=== PATIENT | male | born 1950 | race Hispanic/Latino ===

== ENCOUNTER 2017-10-20 10:44 | Inpatient (IN) | payer MEDICARE ==
[2017-10-20] VITALS (23 sets, daily range): BP systolic 83–106; BP diastolic 49–75
[~2017-10-20] VITALS: Ht 167.6 cm; Wt 55.8 kg
[2017-10-20] MEDS ORDERED: METHYLPREDNISOLONE SOD SUCC 125 MG/2ML VIAL ONE (10:49)
[2017-10-20] MEDS ORDERED: METHYLPREDNISOLONE SOD SUCC 125 MG/2ML VIAL IV ONE (10:50)
[2017-10-20] MEDS ORDERED: IPRATROPIUM BROMIDE 0.02% 2.5 ML NEB ONE (10:55)
[2017-10-20] MEDS ORDERED: ALBUTEROL SULF 0.083% NEB SOLN 3 ML NEB ONE (10:55)
[2017-10-20] MEDS ORDERED: CEFEPIME HCL 1 GM VIAL IV STA (10:55)
[2017-10-20 11:17] LABS: BASOPHILS # (AUTO) 0.1 (0.0-0.1); BASOPHILS % 0.5 % (0.0-1.0); EOSINOPHILS # (AUTO) 0.7 (0.0-0.4); EOSINOPHILS % 4.6 % (0.0-6.0); HEMATOCRIT 38.7 % (38.2-49.6); LYMPHOCYTES # (AUTO) 5.8 (1.0-3.2); LYMPHOCYTES % 36.9 % (18.0-39.1); MEAN CORPUSCULAR HEMOGLOBIN 29.6 pg (28-32); MEAN CORPUSCULAR VOLUME 95.3 fL (81-99); MONOCYTES # (AUTO) 1.1 (0.2-0.8); MONOCYTES % 7.3 % (4.4-11.3); NEUTROPHILS # (AUTO) 7.9 (2.1-6.9); NEUTROPHILS % 50.3 % (38.7-80.0); PLATELET COUNT 365 x10e3/uL (140-360); RED BLOOD COUNT 4.06 x10e6/uL (4.3-5.7); RED CELL DISTRIBUTION WIDTH 17.2 % (11.7-14.4)
--- NOTE | 2017-10-20 11:28 | Diagnostic Imaging Report ---
Examination: Single AP view of the chest. COMPARISON: None. INDICATION: Respiratory distress IMPRESSION: 1. Lines and Tubes: Single lead AICD in the left upper chest. Tracheostomy tube in place. 2. Hypoinflated lungs. Diffuse bilateral interstitial opacities extending from the angelito consistent with pulmonary edema. Partial obscuration of the left hemidiaphragm likely reflects pleural effusion and associated atelectasis. 3. Enlarged cardiac silhouette. Central pulmonary venous congestion 4. No acute bony abnormalities. Signed by: Dr. Domenico Celestin M.D. on 10/20/2017 11:24 AM
[2017-10-20] MEDS ORDERED: SODIUM CHLORIDE 0.9% 1000ML 1,000 ML IV SCH (11:30)
[2017-10-20 11:31] LABS: INR 2.18; PROTHROMBIN TIME 22.8 seconds (11.9-14.5)
[2017-10-20 11:32] LABS: PARTIAL THROMBOPLASTIN TIME 42.2 seconds (23.8-35.5)
[2017-10-20 11:41] LABS: EOSINOPHILS % (MANUAL) 8 % (0-7); LYMPHOCYTES % (MANUAL) 38 % (19-48); MONOCYTES % (MANUAL) 7 % (3.4-9.0); NEUTROPHILS % (MANUAL) 47 % (40-74)
[2017-10-20 11:42] LABS: ANISOCYTOSIS SLIGHT; PLATELET ESTIMATE ADEQUATE; PLATELET MORPHOLOGY COMMENT FEW LARGE; RBC MORPHOLOGY COMMENT NORMAL; STOMATOCYTES SLIGHT
[2017-10-20 11:43] LABS: B-TYPE NATRIURETIC PEPTIDE2 832.6 pg/mL (0-100)
[2017-10-20] MEDS ORDERED: FUROSEMIDE INJ 10 MG/ML 4 ML VIAL IV ONE (11:45)
[2017-10-20 11:47] LABS: ALANINE AMINOTRANSFERASE 30 IU/L (0-55); ALBUMIN 3.4 g/dL (3.5-5.0); ALBUMIN/GLOBULIN RATIO 0.6 (0.8-2.0); ALKALINE PHOSPHATASE 177 IU/L (40-150); AMYLASE 64 U/L (25-125); ANION GAP 15.2 mmol/L (8-16); BLOOD UREA NITROGEN 12 mg/dL (7-26); BUN/CREATININE RATIO 21 (6-25); CALCIUM 9.5 mg/dL (8.4-10.2); CARBON DIOXIDE 32 mmol/L (22-29); CHLORIDE 91 mmol/L (98-107); CREATINE KINASE 26 IU/L (30-200); CREATININE, SERUM 0.57 mg/dL (0.72-1.25); EST GLOMERULAR FILTRATION RATE > 60 ML/MIN (60-); GLUCOSE 149 mg/dL (74-118); LIPASE 37 U/L (8-78); POTASSIUM 5.2 mmol/L (3.5-5.1); SODIUM 133 mmol/L (136-145)
[2017-10-20 12:01] LABS: ABG PH 7.39 (7.31-7.41)
[2017-10-20 12:02] LABS: ABG HCO3 32 mmol/L (23-28); ABG PCO2 54 mmHg (41-51); ABG PO2 515 mmHg (80-105)
[2017-10-20] MEDS: INSULIN LISPRO 100 UNIT/1 ML 3ML VIAL SQ SCH ×3 (12:30→23:16)
[2017-10-20] MEDS ORDERED: VANCOMYCIN HCL 1GM/NS 250 ML BAG IV SCH (12:30)
[2017-10-20] MEDS ORDERED: SOD POLYSTYRENE SULFONATE SUSP 15 GM/60 ML BTL PO ONE (12:30)
[2017-10-20] MEDS: LEVOFLOXACIN 750MG/D5W 150ML 150 ML IV SCH ×2 (12:50→14:07)
[2017-10-20] MEDS: AZITHROMYCIN 500MG/SOD CHL 0.9% 250ML BAG IV SCH (14:00)
[2017-10-20] MEDS: VANCOMYCIN 1GM/NS 250 ML 250 ML IV SCH (14:07)
[2017-10-20] MEDS: ENOXAPARIN SOD INJ 40 MG/0.4 ML SYR SC SCH (14:14)
[2017-10-20] MEDS ORDERED: LEVOTHYROXINE50 MCG PO (14:37)
[2017-10-20] MEDS ORDERED: LISINOPRIL2.5 MG PO (14:38)
[2017-10-20] MEDS ORDERED: MIDODRINE HCL2.5 MG PO (14:39)
[2017-10-20] MEDS ORDERED: NEOMYCIN-POLYMY10 ML (14:40)
[2017-10-20] MEDS ORDERED: ONDANSETRON2 MG/1 ML IV (14:42)
[2017-10-20] MEDS ORDERED: PNEUMOVAX25 MCG/0.5 IM (14:43)
[2017-10-20] MEDS ORDERED: SERTRALINE HCL50 MG PO (14:44)
[2017-10-20] MEDS ORDERED: SPIRONOLACTONE25 MG PEG (14:45)
[2017-10-20] MEDS ORDERED: VENELEX OINTMEN60 GM (14:46)
[2017-10-20] MEDS ORDERED: COUMADIN3 MG PEG (14:48)
[2017-10-20] MEDS ORDERED: ZINC OXIDE56.7 GM TOP (14:49)
[2017-10-20] MEDS ORDERED: ACETAMINOPHEN650 MG PEG (14:52)
[2017-10-20] MEDS ORDERED: ALPRAZOLAM0.25 MG PEG (14:53)
[2017-10-20] MEDS ORDERED: AMIODARONE HCL200 MG PEG (14:54)
[2017-10-20] MEDS ORDERED: BUDESONIDE0.5 MG/2 M NEB (14:56)
[2017-10-20] MEDS ORDERED: CARVEDILOL3.125 MG PEG (14:58)
[2017-10-20] MEDS ORDERED: CHOLESTYRAMINE P4 GM PEG (15:00)
[2017-10-20] MEDS ORDERED: DEXTROSE 50%-WA50 ML IV (15:01)
[2017-10-20] MEDS ORDERED: FAMOTIDINE20 MG PEG (15:02)
[2017-10-20] MEDS ORDERED: GABAPENTIN100 MG PEG (15:05)
[2017-10-20] MEDS ORDERED: GLUCAGEN1 M1 IM (15:05)
[2017-10-20] MEDS ORDERED: HUMALOG100 UNIT/1 SC (15:10)
[2017-10-20] MEDS ORDERED: COMBIVENT RESPIM4 GM IH (15:14)
[2017-10-20] MEDS ORDERED: LEVEMIR100 UNIT/1 SC (15:14)
[2017-10-20] MEDS ORDERED: GLUCAGON FOR INJ 1 MG VIAL IM PRN (15:45)
[2017-10-20] MEDS ORDERED: ACETAMINOPHEN 650 MG SUPP PR PRN (15:45)
[2017-10-20] MEDS ORDERED: DEXTROSE 50% SYRINGE 50 ML IV PRN ×2 (15:45→18:00)
[2017-10-20] MEDS: BUDESONIDE 0.5MG/2 ML NEB NEB SCH ×2 (16:20→18:55)
[2017-10-20] MEDS ORDERED: ONDANSETRON HCL INJ 2 MG/ML VIAL ONE (16:49)
[2017-10-20] MEDS ORDERED: NOREPINEPHRINE 8 MG/D5W 250 ML 250 ML IV PRN (17:00)
[2017-10-20] MEDS ORDERED: WARFARIN SOD 3 MG TAB PEG SCH (17:00)
[2017-10-20] MEDS: WARFARIN SOD 2.5 MG TAB PEG SCH (17:00)
[2017-10-20] MEDS: ONDANSETRON HCL INJ 2 MG/ML VIAL IV PRN (17:14)
[2017-10-20] MEDS: NEOMYCIN/POLYMYX/HYDROC (OTIC) 10 ML BTL OT SCH (17:14)
--- NOTE | 2017-10-20 17:17 | History and Physical ---
This is a 67-year-old male who unfortunately has a history of severe cardiomyopathy with an ejection fraction of 10%, history of chronic ventilator situation because of chronic respiratory failure, history of several weaning trials from the ventilator machine. He has been on the ventilator for at least 3 months. He has been in and out of the hospital. The last admission was in [place] with pneumonia and acute congestive heart failure. He was trying to be weaned off the ventilator several times. He failed all the times. The family wanted hospice but he declined, based on the patient's wishes. Patient was at [facility] and was sent here because of acute respiratory failure again. PHYSICAL EXAMINATION: VITAL SIGNS: Blood pressure 100/72, temperature 97.6, heart rate 103 per minute, respiratory rate 24 per minute. Oxygen pressure 100%. HEART: Shows regular rhythm. No murmurs. No extra sounds. LUNGS: Decreased breath sounds bilaterally. ABDOMEN: Soft. EXTREMITIES: Show no evidence of cyanosis, edema or trauma. On the chest x-ray showed pulmonary edema. On the BMP sodium 133, potassium 5.2, chloride 91. CO2 32. BUN 12, creatinine 0.57. Glucose 149. On the CBC white blood count 15,300, hemoglobin 12.2, hematocrit 38.7, platelet count 365 000. PT 22.8. INR 2.18. PTT 42.2. AST 40. ALT 30. Total bilirubin 0.4. Alkaline phosphatase 177. FINAL IMPRESSION: 1. Wzdyq-nl-hjdcirj respiratory failure secondary to congestive heart failure. 2. Rfwue-vi-kssuebo systolic congestive heart failure. 3. Hyperkalemia. 4. Aspiration pneumonia. 5. Paroxysmal atrial fibrillation. PLAN OF TREATMENT: Going to continue ventilator support. Going to discontinue IV fluids. Continue Levaquin 500 mg IV daily, vancomycin 1 gram IV once a day. Going to start him on Lasix 40 mg IV daily. Are going to discontinue lisinopril. Coumadin going to placed on hold. The patient is going to need either a PICC line or a central line due to hypotension, but most likely need to start him on Levophed or dopamine. Going to consult Dr. Molina, mine motor operator who knows the patient very well. for pulmonary because he knows the patient very well also. The patient has a very poor prognosis. We discussed the case with the family several times. We offered hospice. The patient and the family refused that. They understand that the prognosis is very poor with very low ejection fraction around 10%. Continue the rest of the medications except the blood pressure medications. Job#: [id number]
[2017-10-20] MEDS: ALPRAZOLAM 0.25 MG TAB PEG SCH ×2 (17:22→23:14)
[2017-10-20] MEDS: CARVEDILOL 3.125 MG TAB PEG SCH (17:22)
[2017-10-20] MEDS: SPIRONOLACTONE 25 MG TAB PEG SCH (17:22)
[2017-10-20] MEDS: IPRATROPIUM/ALBUTEROL SULFATE 4 GM INH INH SCH (19:00)
--- NOTE | 2017-10-20 20:49 | Consultation ---
DATE OF CONSULTATION: October 20, 2017 PULMONARY CRITICAL CARE CONSULTATION Patient is well known to me from [facility] and [facility]. HPI: Mr. Cortez is a 67-year-old unfortunate male who has ejection fraction of 10%, severe cardiomyopathy. He had multiple attempts of ventilator weaning in the last 6 to 7 months which has been failed and he has been ventilator dependent. He was transferred. He stayed almost a month at [facility] and was transferred to [facility] 2 days ago where he became tachypneic and was losing volume from around the tracheostomy and I was called, so I requested a transfer to the emergency room. Patient was seen in the emergency room and admitted here. The patient's family has declined any hospice or comfort care. Overall, prognosis is poor and they are aware of it. REVIEW OF SYSTEMS: Unable to elicit detailed review of systems. Patient is on a ventilator right now. PAST MEDICAL HISTORY: Chronic systolic heart failure, atrial fibrillation, hypertension, ventilator dependence, chronic respiratory failure. FAMILY AND SOCIAL HISTORY: He lives at the [facility]. He has no history of smoking. is involved in care. PHYSICAL EXAMINATION: VITAL SIGNS: Temperature 97.6, pulse of 81, blood pressure 106/71, respiratory rate of 18, O2 sat 100% and he is on 50% FiO2 and tidal volume of 450. HEENT: Head atraumatic, normocephalic. NECK: Patient has tracheostomy. CHEST: Clear to auscultation bilaterally. No wheezing. HEART: S1, S2 audible. ABDOMEN: Soft. EXTREMITIES: No pedal edema. NEUROLOGICAL: He is awake and alert and following commands. LABORATORY DATA: White count of 15,000, hemoglobin 12.0, platelets 365,000. Chemistry: Sodium 133, potassium 5.2, chloride 91, BUN 12, creatinine 0.57. Blood gas: PH of 7.49, pCO2 54, pO2 of 515. X-RAYS: Chest x-ray is showing bilateral alveolar infiltrate. ASSESSMENT AND PLAN: Mr. Cortez is a 67-year-old male who presented to the emergency room from [facility] with shortness of breath and tachypnea. Patient is ventilator dependent, has severe cardiomyopathy with ejection fraction of 10%. CURRENT PROBLEMS: 1. Ugbid-tj-fxlczzm systolic heart failure. 2. Possible pneumonia. Recently was treated for pseudomonas pneumonia. 3. Rwkau-ub-vrivfeu respiratory failure. Ventilator dependence. 4. Atrial fibrillation. 5. Debility and weakness. 6. Bedbound status. 7. Tracheostomy. 8. Gastrostomy tube status. PLAN: 1. Continue the patient on IV antibiotics as ordered. 2. Cardiology consultation has been called for heart failure. Overall, patient has extremely poor prognosis. This has been discussed in detail with patient's when the patient was at [facility] [place] and they want everything done for him. Critical care time spent is 50 minutes. Job#: [id number]
[2017-10-20] MEDS: MIDODRINE HCL 5 MG TABLET PO SCH (20:54)
[2017-10-20] MEDS: GABAPENTIN 100 MG CAP PEG SCH (20:54)
--- NOTE | 2017-10-20 20:54 | Consultation ---
DATE OF CONSULTATION: October 20, 2017 CARDIOLOGY CONSULTATION CLINICAL HISTORY: This is a 67-year-old man with multiple medical problems known to me from previous evaluation, recently at [facility] referred by Dr. Milton Roper for cardiovascular evaluation in setting of progressive shortness of breath. This patient is known to have alcoholic cardiomyopathy with ejection fraction the range of 10%. He has a chronic tracheostomy. He apparently had this for the past 6 months plus. He also has patient has severe weakness in all 4 extremities. There is unclear history of cervical neck problems. He has had a cardiac catheterization which failed to show significant coronary artery disease. There are also problems with atrial fibrillation and supraventricular tachycardia, some of which is exacerbated by albuterol. He has chronic hypotension maintained on midodrine. He has hypothyroidism. He is status post AICD due to cardiomyopathy. In the past he has had valvular surgery at least 2 different locations. He has chronic urinary tract infections. He was recently transferred from [place] ICU to [facility] and while there just for a day or so he became severely dyspneic and was readmitted to our ICU. Cardiac consultation requested. PAST MEDICAL HISTORY: Remarkable for above-mentioned condition. FAMILY HISTORY: Please refer to previous records. PERSONAL/SOCIAL HISTORY: Was a heavy drinker. PHYSICAL EXAMINATION: HEENT: He has tracheostomy. CARDIAC: Jugular veins are not distended. S1 and S2 are regular and rapid. There is grade 1/6 systolic murmur. LUNGS: Scattered crackles. ABDOMEN: Soft. Bowel sounds are present. EXTREMITIES: Show no cyanosis, clubbing or edema. IMPRESSION: 1. Congestive heart failure with severe alcoholic cardiomyopathy. Ejection fraction 10%. 2. Status post AICD. 3. History of atrial fibrillation and supraventricular tachycardia exacerbated by bronchodilators. 4. Hypothyroidism. 5. Quadriparesis. 6. History of valvular surgery. 7. Chronic tracheostomy. RECOMMENDATION: Treatment for congestive heart failure. Diuretics. Avoid bronchodilators if possible. Job#: [id number] GH cc:MILTON ROPER MD
[2017-10-20] MEDS ORDERED: MIDODRINE 2.5 MG TAB PO SCH (21:00)
--- NOTE | 2017-10-20 22:51 | Diagnostic Imaging Report ---
EXAM: CHEST XRAY LINE PLACEMENT, AP 1 view INDICATION: PICC placement COMPARISON: AP view of the chest October 20, 2017 FINDINGS: LINES/TUBES: Distal aspect of a right approach PICC terminates in expected location of the atriocaval junction. Stable position of left approach single lead cardiac device. Tracheostomy and lower median sternotomy wire stable. LUNGS: Stable bilateral interstitial and alveolar opacities given rotation. PLEURA: Suspected left pleural effusion. HEART AND MEDIASTINUM: Stable cardiomegaly and vascular congestion. BONES AND SOFT TISSUES: No acute findings. IMPRESSION: Interval placement of right approach PICC with tip at the expected location of the atriocaval junction. Signed by: Dr. Shaye Retana M.D. on 10/20/2017 10:47 PM
[2017-10-21] VITALS (55 sets, daily range): BP systolic 67–119; BP diastolic 47–79
[2017-10-21 04:45] LABS: BASOPHILS % 0.2 % (0.0-1.0); EOSINOPHILS % 0.1 % (0.0-6.0); HEMOGLOBIN 9.2 g/dL (14.0-18.0); LYMPHOCYTES # (AUTO) 0.9 (1.0-3.2); LYMPHOCYTES % 8.5 % (18.0-39.1); MEAN CORPUSCULAR HGB CONC 31.7 g/dL (31-35); MEAN CORPUSCULAR VOLUME 94.5 fL (81-99); NEUTROPHILS # (AUTO) 8.7 (2.1-6.9); NEUTROPHILS % 81.8 % (38.7-80.0); PLATELET COUNT 211 x10e3/uL (140-360); RED BLOOD COUNT 3.07 x10e6/uL (4.3-5.7); RED CELL DISTRIBUTION WIDTH 17.2 % (11.7-14.4)
[2017-10-21 04:59] LABS: INR 2.17; PROTHROMBIN TIME 22.7 seconds (11.9-14.5)
[2017-10-21 05:05] LABS: BLOOD UREA NITROGEN 18 mg/dL (7-26); BUN/CREATININE RATIO 35 (6-25); CALCIUM 8.7 mg/dL (8.4-10.2); CARBON DIOXIDE 30 mmol/L (22-29); CHLORIDE 99 mmol/L (98-107); CREATININE, SERUM 0.51 mg/dL (0.72-1.25); EST GLOMERULAR FILTRATION RATE > 60 ML/MIN (60-); GLUCOSE 113 mg/dL (74-118); SODIUM 138 mmol/L (136-145)
[2017-10-21] MEDS: INSULIN LISPRO 100 UNIT/1 ML 3ML VIAL SQ SCH ×3 (05:08→18:00)
[2017-10-21] MEDS: ALPRAZOLAM 0.25 MG TAB PEG SCH ×3 (05:19→18:23)
[2017-10-21] MEDS: IPRATROPIUM/ALBUTEROL SULFATE 4 GM INH INH SCH ×3 (06:52→19:00)
[2017-10-21] MEDS: FUROSEMIDE INJ 10 MG/ML 4 ML VIAL IV SCH (07:59)
[2017-10-21] MEDS: LISINOPRIL 2.5 MG TAB PO SCH (09:00)
[2017-10-21] MEDS ORDERED: LEVOFLOXACIN 750MG/DEXTROSE PREMIX BAG 150ML IV SCH (09:00)
[2017-10-21] MEDS ORDERED: LEVOTHYROXINE SODIUM 50 MCG TAB PO SCH (09:00)
[2017-10-21] MEDS: SPIRONOLACTONE 25 MG TAB PEG SCH ×2 (09:53→18:21)
[2017-10-21] MEDS: NEOMYCIN/POLYMYX/HYDROC (OTIC) 10 ML BTL OT SCH ×2 (09:53→18:21)
[2017-10-21] MEDS: ZINC OXIDE 30 GM TUBE TOP SCH (09:54)
[2017-10-21] MEDS: FAMOTIDINE 20 MG TAB PEG SCH (09:54)
[2017-10-21] MEDS: GABAPENTIN 100 MG CAP PEG SCH ×3 (09:54→20:55)
[2017-10-21] MEDS: CARVEDILOL 3.125 MG TAB PEG SCH (09:54)
[2017-10-21] MEDS: MIDODRINE HCL 5 MG TABLET PO SCH ×3 (09:54→20:55)
[2017-10-21] MEDS: SERTRALINE HCL 50 MG TAB PO SCH (09:54)
[2017-10-21] MEDS: AZITHROMYCIN 500MG/SOD CHL 0.9% 250ML BAG IV SCH (12:45)
[2017-10-21] MEDS: VANCOMYCIN 1GM/NS 250 ML 250 ML IV SCH (13:43)
[2017-10-21] MEDS: QUETIAPINE FUMARATE 25 MG TAB PO SCH ×2 (13:59→20:55)
[2017-10-21] MEDS: BUDESONIDE 0.5MG/2 ML NEB NEB SCH (15:15)
--- NOTE | 2017-10-21 18:17 | Progress Note ---
DATE: INTERNAL MEDICINE PROGRESS NOTE SUBJECTIVE: Patient is still on a ventilator machine. PHYSICAL EXAM: HEART: Shows regular rhythm. Normal S1 and S2 sounds. LUNGS: Clear bilaterally. ABDOMEN: Soft. EXTREMITIES: Show no evidence of cyanosis, edema or trauma. VITAL SIGNS: Blood pressure 75/57, temperature 96.8, heart rate 78 per minute, respiratory rate 20 per minute, oxygen saturation 100%. BLOOD WORK: We have a CBC with a white blood count 10.63, hemoglobin 9.2, hematocrit 29.0, platelet count is 211,000. On the BMP: Sodium 138, potassium 4.0, chloride 99, CO2 30, BUN 18, creatinine 0.5, glucose is 113, calcium 8.7. B-natriuretic peptide is 832.6. Lipase at 37. The last blood sugar is 141. We also had a chest x-ray done, which showed interval placement of the PICC line. The lungs showed bilateral interstitial alveolar opacities, left pleural effusion, stable cardiomegaly, vascular congestion, bone and soft tissue, no acute findings. FINAL IMPRESSION: 1. Acute on chronic respiratory failure. 2. Aspiration pneumonia. 3. Acute on chronic congestive heart failure. 4. Anemia of chronic disease. 5. Hypotension. 6. Severe end-stage cardiomyopathy. 7. Paroxysmal atrial fibrillation. PLAN OF TREATMENT: Continue budesonide twice a day. Albuterol and Atrovent q.6 h. Levaquin once a day. Continue vancomycin q.24 h. Tylenol 650 mg q.6 h. as needed. He is on furosemide, also, 40 mg IV daily. Levaquin is 750 mg IV once daily. Levophed drip to keep the systolic blood pressure more than 90. Vancomycin is 1 gram IV once a day. Alprazolam 0.25 mg q.6 h. as needed for anxiety with the Pulmicort 1 inhalation twice a day. Coreg 6.25 mg twice a day. Continue Pepcid 20 mg daily. Continue furosemide 40 mg IV daily. Continue with new gabapentin 100 mg 3 times a day. Continue monitoring blood sugar q.6 h. Continue albuterol and Atrovent q.6 h. Continue with lisinopril 2.5 mg daily. Lovenox 40 mg subcutaneously daily. Midodrine 5 mg 3 times a day. Neomycin otic solution twice a day. Zofran 4 mg IV q.6 h. as needed for nausea and vomiting. Seroquel 12.5 mg q.12 h. Zoloft 50 mg daily. Aldactone 25 mg twice a day. Coumadin 2.5 mg daily. Zithromax 500 mg IV once a day. I am going to place the Coreg on hold because of the blood pressure. Patient remains in critical condition. I discussed the case with the yesterday. The still wants everything to be done according to his wishes. Patient has a very low ejection fraction of 10%. Prognosis is extremely poor on this patient. Job#: [id number] EV
[2017-10-21] MEDS: WARFARIN SOD 2.5 MG TAB PEG SCH (18:23)
--- NOTE | 2017-10-21 19:04 | Consultation ---
DATE OF CONSULTATION: REASON FOR CONSULTATION: Sepsis. HISTORY OF PRESENT ILLNESS: This is a 67-year-old male, who has history of severe cardiomyopathy, ejection fraction 10%. History of chronic vent dependent. Patient has been on a ventilator for last 3 months. He has been in the hospital on and off for pneumonia, congestive heart failure. Family wanted hospice, but he declined. Patient was at [facility]. He was transferred here for shortness of breath. Patient was admitted, is currently in intensive care unit. Infectious disease was consulted. The patient is currently noncommunicative. History taken mainly from the chart. LABORATORY DATA: Blood cultures negative. White count on admission was 15, today is 10, hemoglobin 9.2. Sodium 138, potassium 4.0, creatinine 0.51. He is currently on Neurontin, vancomycin, azithromycin, Zoloft, Pepcid, and levofloxacin. His chest x-ray shows diffuse bilateral opacities. PHYSICAL EXAMINATION GENERAL: Patient noncommunicative. VITALS: Temperature 97.8, blood pressure is 74/47. HEENT: Normocephalic. CHEST: Few rhonchi bilateral. COR: S1, S2. ABDOMEN: Soft. Bowel sounds present. EXTREMITIES: Bilateral edema. IMPRESSIONS 1. Sepsis present on admission, respiratory failure in a patient who have severe congestive heart failure, pneumonia community acquired, healthcare-associated. He is currently on vancomycin and Levaquin. Can discontinue azithromycin. Prognosis is poor. 2. Congestive heart failure. 3. Status post automatic implantable cardioverter defibrillator. 4. History of atrial fibrillation. 5. Hypothyroidism. 6. Quadriparesis. 7. History of chronic tracheostomy. 8. Will follow with you. 9. Will follow and vancomycin trough. Job#: [id number] CQ
[2017-10-22] VITALS (24 sets, daily range): BP systolic 87–134; BP diastolic 58–99
[2017-10-22] MEDS: IPRATROPIUM/ALBUTEROL SULFATE 4 GM INH INH SCH ×4 (01:00→19:00)
[2017-10-22] MEDS: ALPRAZOLAM 0.25 MG TAB PEG SCH ×4 (02:28→18:00)
[2017-10-22] MEDS: BUDESONIDE 0.5MG/2 ML NEB NEB SCH ×2 (02:40→07:35)
[2017-10-22 04:44] LABS: BASOPHILS # (AUTO) 0.1 (0.0-0.1); BASOPHILS % 0.5 % (0.0-1.0); EOSINOPHILS # (AUTO) 0.9 (0.0-0.4); EOSINOPHILS % 8.9 % (0.0-6.0); HEMATOCRIT 32.9 % (38.2-49.6); HEMOGLOBIN 10.4 g/dL (14.0-18.0); LYMPHOCYTES # (AUTO) 1.4 (1.0-3.2); LYMPHOCYTES % 13.4 % (18.0-39.1); MEAN CORPUSCULAR HEMOGLOBIN 30.1 pg (28-32); MEAN CORPUSCULAR HGB CONC 31.6 g/dL (31-35); MEAN CORPUSCULAR VOLUME 95.1 fL (81-99); MONOCYTES # (AUTO) 0.6 (0.2-0.8); MONOCYTES % 5.6 % (4.4-11.3); NEUTROPHILS # (AUTO) 7.2 (2.1-6.9); NEUTROPHILS % 71.3 % (38.7-80.0); PLATELET COUNT 227 x10e3/uL (140-360); RED BLOOD COUNT 3.46 x10e6/uL (4.3-5.7); RED CELL DISTRIBUTION WIDTH 17.2 % (11.7-14.4)
[2017-10-22 04:57] LABS: INR 1.7; PROTHROMBIN TIME 18.8 seconds (11.9-14.5)
[2017-10-22 05:05] LABS: ANION GAP 13.8 mmol/L (8-16); BLOOD UREA NITROGEN 21 mg/dL (7-26); BUN/CREATININE RATIO 36 (6-25); CALCIUM 8.9 mg/dL (8.4-10.2); CARBON DIOXIDE 31 mmol/L (22-29); CHLORIDE 97 mmol/L (98-107); CREATININE, SERUM 0.59 mg/dL (0.72-1.25); EST GLOMERULAR FILTRATION RATE > 60 ML/MIN (60-); GLUCOSE 146 mg/dL (74-118); POTASSIUM 3.8 mmol/L (3.5-5.1); SODIUM 138 mmol/L (136-145)
[2017-10-22] MEDS: INSULIN LISPRO 100 UNIT/1 ML 3ML VIAL SQ SCH ×4 (06:00→18:00)
--- NOTE | 2017-10-22 07:06 | Diagnostic Imaging Report ---
EXAM: CHEST SINGLE (PORTABLE), AP 1 view INDICATION: Question of aspiration COMPARISON: AP view of the chest October 20, 2017 FINDINGS: LINES/TUBES: Stable right approach PICC, tracheostomy and left approach cardiac device. LUNGS: Stable interstitial alveolar opacities, greatest on the left. PLEURA: No effusions or pneumothorax. HEART AND MEDIASTINUM: Stable appearance BONES AND SOFT TISSUES: No acute findings. IMPRESSION: No interval change. Signed by: Dr. Shaye Retana M.D. on 10/22/2017 7:03 AM
[2017-10-22] MEDS: FUROSEMIDE INJ 10 MG/ML 4 ML VIAL IV SCH (09:00)
[2017-10-22] MEDS: ENOXAPARIN SOD INJ 40 MG/0.4 ML SYR SC SCH (09:00)
[2017-10-22] MEDS: ZINC OXIDE 30 GM TUBE TOP SCH (09:00)
[2017-10-22] MEDS: LEVOFLOXACIN 750MG/D5W 150ML 150 ML IV SCH (09:00)
[2017-10-22] MEDS: QUETIAPINE FUMARATE 25 MG TAB PO SCH ×2 (09:00→21:13)
[2017-10-22] MEDS: LISINOPRIL 2.5 MG TAB PO SCH (09:00)
[2017-10-22] MEDS: NEOMYCIN/POLYMYX/HYDROC (OTIC) 10 ML BTL OT SCH ×2 (09:00→17:00)
[2017-10-22] MEDS: SPIRONOLACTONE 25 MG TAB PEG SCH ×2 (09:00→17:00)
[2017-10-22] MEDS: GABAPENTIN 100 MG CAP PEG SCH ×3 (09:00→21:13)
[2017-10-22] MEDS: MIDODRINE HCL 5 MG TABLET PO SCH ×3 (09:00→21:13)
[2017-10-22] MEDS: FAMOTIDINE 20 MG TAB PEG SCH (09:00)
[2017-10-22] MEDS: SERTRALINE HCL 50 MG TAB PO SCH (09:00)
[2017-10-22] MEDS: AZITHROMYCIN 500MG/SOD CHL 0.9% 250ML BAG IV SCH (12:50)
[2017-10-22] MEDS: WARFARIN SOD 2.5 MG TAB PEG SCH (17:00)
--- NOTE | 2017-10-22 17:23 | Progress Note ---
DATE: October 22, 2017 INFECTIOUS DISEASE PROGRESS NOTE SUBJECTIVE: Mr. Cortez was seen today, on October 22. He seems better, more alert. Family at the bedside. No complaints. His vitals seem to be better. REVIEW OF SYSTEMS: There is nothing new today. PHYSICAL EXAMINATION GENERAL: He is alert, comfortable on the vent. VITAL SIGNS: Stable. Currently afebrile. Temperature 97.8 as mentioned above. Heart rate 66. Respiration 23. Blood pressure 125/88. HEENT: He does not appear icteric. Normocephalic. CHEST: A few crackles bilaterally. HEART: S1 and S2. No S3 or S4, no murmur. ABDOMEN: Soft. Bowel sounds present. No tenderness. EXTREMITIES: No edema. His blood cultures are no growth at 48 hours. Sputum showing gram-negative rods. His white count is down to 10.09, hemoglobin of 10.45. Sodium 138, potassium 3.8, creatinine of 0.59. IMPRESSION 1. Sepsis on admission secondary to pneumonia seems to be resolving, getting better, probably gram-negative. 2. Congestive heart failure. 3. Status post automatic implantable cardioverter-defibrillator. 4. History of atrial fibrillation. 5. Quadriparesis. 6. History of chronic respiratory failure, chronic tracheostomy. Discontinue azithromycin. Continue Levaquin. Can probably discontinue vancomycin since there is no gram-positive. Continue with supportive care. Will follow with you. Job#: [id number] EV
[2017-10-23] VITALS (23 sets, daily range): BP systolic 94–126; BP diastolic 54–95
[2017-10-23] MEDS: ALPRAZOLAM 0.25 MG TAB PEG SCH ×4 (00:10→18:00)
[2017-10-23] MEDS: INSULIN LISPRO 100 UNIT/1 ML 3ML VIAL SQ SCH ×4 (00:16→18:00)
[2017-10-23] MEDS: IPRATROPIUM/ALBUTEROL SULFATE 4 GM INH INH SCH ×4 (01:00→19:00)
[2017-10-23] MEDS: BUDESONIDE 0.5MG/2 ML NEB NEB SCH ×2 (02:50→06:25)
[2017-10-23 04:59] LABS: INR 1.92; PROTHROMBIN TIME 20.6 seconds (11.9-14.5)
--- NOTE | 2017-10-23 06:55 | Diagnostic Imaging Report ---
EXAM: CHEST SINGLE (PORTABLE), AP 1 view INDICATION: Intubated COMPARISON: AP view of the chest October 22, 2017 FINDINGS: LINES/TUBES: Stable endotracheal tube, right approach PICC and left approximately cardiac device LUNGS: Stable interstitial opacities predominantly in the left. PLEURA: No effusions or pneumothorax. HEART AND MEDIASTINUM: Stable BONES AND SOFT TISSUES: No acute findings. IMPRESSION: No interval change Signed by: Dr. Shaye Retana M.D. on 10/23/2017 6:51 AM
[2017-10-23] MEDS: LISINOPRIL 2.5 MG TAB PO SCH (09:00)
[2017-10-23] MEDS: NEOMYCIN/POLYMYX/HYDROC (OTIC) 10 ML BTL OT SCH ×2 (09:00→17:00)
[2017-10-23] MEDS: LEVOFLOXACIN 750MG/D5W 150ML 150 ML IV SCH (09:00)
[2017-10-23] MEDS: ENOXAPARIN SOD INJ 40 MG/0.4 ML SYR SC SCH (09:00)
[2017-10-23] MEDS: FUROSEMIDE INJ 10 MG/ML 4 ML VIAL IV SCH (09:00)
[2017-10-23] MEDS: SERTRALINE HCL 50 MG TAB PO SCH (09:00)
[2017-10-23] MEDS: MIDODRINE HCL 5 MG TABLET PO SCH ×3 (09:00→21:32)
[2017-10-23] MEDS: ZINC OXIDE 30 GM TUBE TOP SCH (09:00)
[2017-10-23] MEDS: FAMOTIDINE 20 MG TAB PEG SCH (09:00)
[2017-10-23] MEDS: SPIRONOLACTONE 25 MG TAB PEG SCH ×2 (09:00→17:00)
[2017-10-23] MEDS: QUETIAPINE FUMARATE 25 MG TAB PO SCH ×2 (09:00→21:32)
[2017-10-23] MEDS: GABAPENTIN 100 MG CAP PEG SCH ×3 (09:00→21:32)
[2017-10-23] MEDS: WARFARIN SOD 2.5 MG TAB PEG SCH (17:00)
[2017-10-24] VITALS (40 sets, daily range): BP systolic 84–108; BP diastolic 50–86
[2017-10-24] MEDS: ALPRAZOLAM 0.25 MG TAB PEG SCH ×4 (00:13→17:13)
[2017-10-24] MEDS: INSULIN LISPRO 100 UNIT/1 ML 3ML VIAL SQ SCH ×4 (00:16→18:00)
[2017-10-24] MEDS: IPRATROPIUM/ALBUTEROL SULFATE 4 GM INH INH SCH ×4 (01:00→19:00)
[2017-10-24] MEDS: BUDESONIDE 0.5MG/2 ML NEB NEB SCH ×2 (02:30→07:20)
[2017-10-24 05:07] LABS: INR 1.99; PROTHROMBIN TIME 21.2 seconds (11.9-14.5)
[2017-10-24] MEDS: ALBUTEROL/IPRATROPIUM 3 ML NEB NEB PRN ×2 (07:20→15:30)
--- NOTE | 2017-10-24 08:00 | Diagnostic Imaging Report ---
EXAM: CHEST SINGLE (PORTABLE), AP 1 view INDICATION: Ventilated COMPARISON: AP view of the chest October 23, 2017 FINDINGS: LINES/TUBES: The endotracheal tube terminates 4.5 cm above the gila. Interval removal of right approach PICC. Stable position of left approach single lead cardiac device. LUNGS: No interval change PLEURA: Probable bilateral pleural effusions HEART AND MEDIASTINUM: No interval change BONES AND SOFT TISSUES: No acute findings. IMPRESSION: No interval change Signed by: Dr. Shaye Retana M.D. on 10/24/2017 6:49 AM
[2017-10-24] MEDS: FAMOTIDINE 20 MG TAB PEG SCH (08:35)
[2017-10-24] MEDS: GABAPENTIN 100 MG CAP PEG SCH ×3 (08:35→20:55)
[2017-10-24] MEDS: SPIRONOLACTONE 25 MG TAB PEG SCH ×2 (08:35→17:13)
[2017-10-24] MEDS: LISINOPRIL 2.5 MG TAB PO SCH (08:39)
[2017-10-24] MEDS: ENOXAPARIN SOD INJ 40 MG/0.4 ML SYR SC SCH (08:39)
[2017-10-24] MEDS: SERTRALINE HCL 50 MG TAB PO SCH (08:39)
[2017-10-24] MEDS: QUETIAPINE FUMARATE 25 MG TAB PO SCH ×2 (08:39→20:55)
[2017-10-24] MEDS: MIDODRINE HCL 5 MG TABLET PO SCH ×3 (08:39→20:55)
[2017-10-24] MEDS: ZINC OXIDE 30 GM TUBE TOP SCH (08:40)
[2017-10-24] MEDS: NEOMYCIN/POLYMYX/HYDROC (OTIC) 10 ML BTL OT SCH ×2 (08:41→17:13)
[2017-10-24] MEDS: LEVOFLOXACIN 750MG/D5W 150ML 150 ML IV SCH (08:41)
[2017-10-24] MEDS: FUROSEMIDE INJ 10 MG/ML 4 ML VIAL IV SCH (09:00)
[2017-10-24] MEDS ORDERED: DIATRIZOATE MEGL/DIATRIZOA SOD 30 ML BTL PO ONE (09:23)
--- NOTE | 2017-10-24 10:11 | Diagnostic Imaging Report ---
EXAM: Abdomen 1 Views INDICATION: \S\pain \[id number] \S\0937 COMPARISON: None FINDINGS: PEG tube overlying the left upper quadrant. Mild amount of stool in the colon. No dilated loops of small bowel. No renal calculi. Indeterminate calcification overlying the right upper quadrant. No abnormal soft tissue masses. Mild degenerative changes in the lumbar spine and pelvis. IMPRESSION: Nonobstructive bowel gas pattern. Indeterminate calcification overlying the right upper quadrant. Signed by: Dr. Vangie Lawson M.D. on 10/24/2017 10:07 AM
--- NOTE | 2017-10-24 14:07 | Progress Note ---
DATE: INTERNAL MEDICINE PROGRESS NOTE SUBJECTIVE: The patient is on the ventilator machine. He complains of abdominal pain. He has diarrhea. He is going to get a CT of the abdomen and pelvis. We are also going to send a stool for C. difficile since he does have a history of C. difficile colitis before. VITALS: Blood pressure 103/70. Temperature 98.3. Heart rate 88 per minute. Respiratory rate 24 per minute. Oxygen saturation 98%. On the last blood work, we have BMP with sodium 138, potassium 3.8, chloride 97, CO2 31, BUN 21, creatinine 0.59 and glucose 146. On the CBC, white blood count 10.0, hemoglobin 10.0, hematocrit 32.9, platelet count 297,000. PT 21.2, INR 1.994, PTT 42.2. AST 48, ALT 30, total bilirubin 0.4, alkaline phosphatase 127. ASSESSMENT 1. Yzhyf-kr-mvvjujv respiratory failure on a ventilator right now. 2. Aspiration pneumonia. 3. Sepsis. 4. History of chronic systolic congestive heart failure secondary to end-stage cardiomyopathy with ejection fraction of 10%. 5. Status post automatic implantable cardioverter-defibrillator. 6. History of chronic atrial fibrillation. 7. History of quadriparesis. 8. History of tracheostomy. 9. History of acquired hypothyroidism. PLAN OF TREATMENT 1. We are going to continue ventilator support. Wean as tolerated. 2. Continue Pulmicort twice a day. 3. Albuterol and Atrovent q.6 h. 4. Levaquin daily. 5. Levophed drip as needed for hypertension. 6. Continue carvedilol 3.125 mg twice a day. 7. Gabapentin 100 mg 3 times a day. 8. Aldactone 25 mg twice a day. 9. Midodrine 5 mg through PEG tube 3 times a day. 10. Continue monitoring blood sugar q.6 h. 11. Continue Lovenox 40 mg 2 times daily. 12. Continue Glucagon 1 mg q.8 h. as needed for hypoglycemia. 13. Zinc oxide 1 gram daily to affected area topically. 14. Coumadin 2.5 mg daily. 15. Continue Seroquel 12.5 mg twice a day. 16. Continue Tylenol 650 mg q.6 h. as needed. 17. Furosemide 40 mg daily. 18. Lisinopril 2.5 mg daily. 19. Neomycin, Polysporin, hydrocortisone 1 application to affected skin rash areas twice a day. 20. Zofran 4 mg IV q.6 h. as needed for vomiting. 21. Risperdal 0.25 mg q.6 h. 22. Alprazolam 0.25 mg q.6 h. as needed for anxiety. 23. Pepcid 20 mg daily. 24. Zoloft 50 mg daily. 25. D50 IV push as needed. 26. The prognosis is very poor. The family is aware of that. Very low ejection fraction. He has been unable to be weaned off the ventilator. As I said, we are going to order a CT of the abdomen and pelvis for the abdominal pain that he is having. We are going to also send a stool for C. difficile. Job#: [id number]
--- NOTE | 2017-10-24 15:02 | Diagnostic Imaging Report ---
EXAM: CT Abdomen and Pelvis WITHOUT contrast INDICATION: \S\adb pain oral contrast \[id number] \S\1320 COMPARISON: KUB 10/24/2017 TECHNIQUE: Abdomen and pelvis were scanned utilizing a multidetector helical scanner from the lung base to the pubic symphysis without administration of IV contrast. Absence of intravenous contrast decreases sensitivity for detection of focal lesions and vascular pathology. Coronal and sagittal reformations were obtained. Routine protocol was performed. IV CONTRAST: None. ORAL CONTRAST: None RADIATION DOSE: Total DLP: 230 mGy*cm Estimated effective dose: (DLP x 0.015 x size factor) mSv COMPLICATIONS: None FINDINGS: LINES and TUBES: ICD lead in the right ventricle. Peg tube within the gastric body. Bingham catheter within the urinary bladder. LOWER THORAX: Dystrophic calcification within the left ventricular [place] and distal interventricular septum consistent with all infarct. Cardiomegaly. Small bilateral pleural effusions with adjacent atelectasis. Extensive groundglass opacities with traction bronchiectasis and septal thickening as well as subpleural reticulation of the lungs consistent with interstitial lung disease with pulmonary fibrosis. Reticular nodular consolidations in the left lower lobe greater than the right lower lobe are suggestive of multifocal pneumonia or aspiration. HEPATOBILIARY: No focal hepatic lesions. No biliary ductal dilation. GALLBLADDER: No radio-opaque stones or sludge. No wall thickening. SPLEEN: No splenomegaly. PANCREAS: No focal masses or ductal dilatation. ADRENALS: No adrenal nodules KIDNEYS/URETERS: No hydronephrosis. No cystic or solid mass lesions. No stones. GI TRACT: 2.4 x 1.8 cm soft tissue mass within the distal ascending colon at the hepatic flexure (coronal image 48 and axial image 33) corresponds to the opacity seen on KUB. No calcifications in these region. Surgical clips in the mid abdomen. A few additional areas of focal wall thickening is noted in the cecum on series 2, image 55. No abnormal distention, wall thickening, or evidence of bowel obstruction. Appendix is not visualized. PELVIC ORGANS/BLADDER: Unremarkable. LYMPH NODES: No lymphadenopathy. VESSELS: Unremarkable. PERITONEUM / RETROPERITONEUM: No free air or fluid. BONES: Unremarkable. SOFT TISSUES: Unremarkable. IMPRESSION: 1. Indeterminate intraluminal soft tissue mass within the ascending colon at the hepatic flexure corresponds to the area of concern in the KUB. Recommend further evaluation with GI and colonoscopy to assess for malignancy. A few additional areas of focal wall thickening in the colon may represent areas of chronic inflammation. 2. Bilateral lower lobes reticular nodular consolidations suggestive of aspiration. 3. Diffuse interstitial lung disease with findings suggestive of pulmonary fibrosis. Signed by: Dr. Vangie Lawson M.D. on 10/24/2017 2:59 PM
[2017-10-24] MEDS: WARFARIN SOD 2.5 MG TAB PEG SCH (17:13)
[2017-10-24] MEDS: ACETAMINOPHEN 325 MG/10 ML UDC NG PRN (17:40)
[2017-10-25] VITALS (51 sets, daily range): BP systolic 67–114; BP diastolic 50–92
[2017-10-25] MEDS: INSULIN LISPRO 100 UNIT/1 ML 3ML VIAL SQ SCH ×4 (00:15→17:00)
[2017-10-25] MEDS: ALPRAZOLAM 0.25 MG TAB PEG SCH ×5 (00:42→20:51)
[2017-10-25] MEDS: IPRATROPIUM/ALBUTEROL SULFATE 4 GM INH INH SCH ×4 (01:00→19:00)
[2017-10-25] MEDS: BUDESONIDE 0.5MG/2 ML NEB NEB SCH ×3 (02:20→19:05)
[2017-10-25 05:14] LABS: INR 2.22; PROTHROMBIN TIME 23.1 seconds (11.9-14.5)
[2017-10-25] MEDS: ALBUTEROL/IPRATROPIUM 3 ML NEB NEB PRN ×3 (06:45→19:05)
[2017-10-25] MEDS: GABAPENTIN 100 MG CAP PEG SCH ×3 (08:07→20:52)
[2017-10-25] MEDS: SERTRALINE HCL 50 MG TAB PO SCH (08:07)
[2017-10-25] MEDS: FAMOTIDINE 20 MG TAB PEG SCH (08:07)
[2017-10-25] MEDS: NEOMYCIN/POLYMYX/HYDROC (OTIC) 10 ML BTL OT SCH ×2 (08:07→17:21)
[2017-10-25] MEDS: SPIRONOLACTONE 25 MG TAB PEG SCH ×2 (08:07→17:00)
[2017-10-25] MEDS: MIDODRINE HCL 5 MG TABLET PO SCH ×3 (08:07→20:52)
[2017-10-25] MEDS: QUETIAPINE FUMARATE 25 MG TAB PO SCH ×2 (08:07→20:51)
[2017-10-25] MEDS: LISINOPRIL 2.5 MG TAB PO SCH (08:07)
[2017-10-25] MEDS: LEVOFLOXACIN 750MG/D5W 150ML 150 ML IV SCH (08:30)
[2017-10-25] MEDS: ENOXAPARIN SOD INJ 40 MG/0.4 ML SYR SC SCH (08:30)
[2017-10-25] MEDS: FUROSEMIDE INJ 10 MG/ML 4 ML VIAL IV SCH (08:30)
[2017-10-25] MEDS: ZINC OXIDE 30 GM TUBE TOP SCH (08:41)
--- NOTE | 2017-10-25 11:20 | Diagnostic Imaging Report ---
EXAM: US CHEST (INCL MEDIASTINUM) INDICATION: \S\effusions COMPARISON: CT abdomen and pelvis 10/24/2017. TECHNIQUE: Transverse and sagittal images were performed of the bilateral chest. FINDINGS: Tiny bilateral pleural effusions. IMPRESSION: Tiny bilateral effusions. Signed by: Dr. Maxim Ordoñez M.D. on 10/25/2017 11:16 AM
--- NOTE | 2017-10-25 12:36 | Progress Note ---
DATE: INTERNAL MEDICINE PROGRESS NOTE SUBJECTIVE: Patient is still on the ventilator, not weanable yet. PHYSICAL EXAM VITAL SIGNS: Blood pressure 91/58, temperature 98.4, heart rate 85 per minute, respiratory rate 18 per minute, oxygen saturation 99%. HEART: Regular rhythm. Normal S1, S2 sounds. LUNGS: Clear bilaterally. ABDOMEN: Soft, slight tenderness in the right flank. EXTREMITIES: Show no evidence of cyanosis, edema, or trauma. LABORATORY DATA: On the BMP, sodium 138, potassium 3.8, chloride 97, CO2 of 31, BUN 21, creatinine 0.59, glucose 146. On the CBC, white blood count 10.0, hemoglobin 10.4, hematocrit 32.9, platelet count 227,000. PT 23.1, INR 2.22, PTT 42.2. AST 40, ALT 30, total bilirubin 0.4, alkaline phosphatase 177. On the CT of the abdomen, it showed a mass in the ascending colon and some infiltrates in the lower part of lungs, also pulmonary fibrosis probably. FINAL IMPRESSION 1. Tvebx-fo-rmivgsm respiratory failure. 1. Pneumonia, most likely aspiration pneumonia. 2. Colonic mass. 3. Anemia of chronic disease. 4. Wwdxe-qs-unrvvee systolic congestive heart failure with an ejection fraction of only 10%. 5. Implantable cardiac defibrillator. 6. Paroxysmal atrial fibrillation. PLAN OF TREATMENT: Continue ventilator support. I am going to consult Dr. Mark Ma for gastroenterology, but the patient is a very poor candidate for any type of surgery due to very low ejection fraction. We talked with the family and the patient, they both want full code and they want to continue current treatment. They do not want hospice. They do not want DNR. Continue with budesonide twice a day, albuterol and Atrovent q.6 hours, Levaquin once a day, Levophed as needed for systolic blood less than 90. We are going to start him on Questran 1 pack twice a day because of the diarrhea. Continue carvedilol 6.25 mg twice a day, gabapentin 100 mg 3 times a day, Aldactone 25 mg twice a day, midodrine 5 mg 3 times a day. Continue with Coumadin 2.5 mg daily, Seroquel 12.5 mg twice a day, Tylenol 650 mg q.6 hours as needed, furosemide 40 mg daily, lisinopril 2.5 mg daily, to be held for systolic blood pressure less than 90. Continue Risperdal 0.25 mg q.6 hours, Zofran 4 mg IV q.6 hours, alprazolam 0.25 mg q.6 hours, Pepcid 20 mg daily, Zoloft 50 mg daily, albuterol and Atrovent q.6 hours. Prognosis is very poor. Job#: [id number] LPA
[2017-10-25] MEDS: RISPERIDONE 0.5 MG TAB PO PRN ×2 (12:38→20:51)
[2017-10-25] MEDS: CHOLESTYRAMINE 4 GM PACKET PEG PRN (13:14)
[2017-10-25] MEDS: WARFARIN SOD 2.5 MG TAB PEG SCH (17:00)
[2017-10-26] VITALS (51 sets, daily range): BP systolic 47–112; BP diastolic 29–79
[2017-10-26] MEDS: IPRATROPIUM/ALBUTEROL SULFATE 4 GM INH INH SCH ×4 (01:00→19:00)
[2017-10-26] MEDS: ALPRAZOLAM 0.25 MG TAB PEG SCH ×3 (04:57→18:00)
[2017-10-26 05:13] LABS: INR 1.76; PROTHROMBIN TIME 19.3 seconds (11.9-14.5)
[2017-10-26 05:15] LABS: PARTIAL THROMBOPLASTIN TIME 58.3 seconds (23.8-35.5)
[2017-10-26] MEDS: INSULIN LISPRO 100 UNIT/1 ML 3ML VIAL SQ SCH ×5 (06:00→23:45)
[2017-10-26] MEDS: BUDESONIDE 0.5MG/2 ML NEB NEB SCH ×2 (06:40→23:00)
[2017-10-26] MEDS: ALBUTEROL/IPRATROPIUM 3 ML NEB NEB PRN ×2 (06:45→19:30)
[2017-10-26] MEDS ORDERED: SODIUM CHLORIDE 0.9% 250ML 250 ML ONE (07:51)
[2017-10-26] MEDS: ENOXAPARIN SOD INJ 40 MG/0.4 ML SYR SC SCH (09:00)
[2017-10-26] MEDS: SPIRONOLACTONE 25 MG TAB PEG SCH ×2 (09:00→18:00)
[2017-10-26] MEDS: NEOMYCIN/POLYMYX/HYDROC (OTIC) 10 ML BTL OT SCH ×2 (09:00→17:00)
[2017-10-26] MEDS: SERTRALINE HCL 50 MG TAB PO SCH (09:00)
[2017-10-26] MEDS: LISINOPRIL 2.5 MG TAB PO SCH (09:00)
[2017-10-26] MEDS: ZINC OXIDE 30 GM TUBE TOP SCH (09:00)
[2017-10-26] MEDS: MIDODRINE HCL 5 MG TABLET PO SCH ×3 (09:00→20:14)
[2017-10-26] MEDS: QUETIAPINE FUMARATE 25 MG TAB PO SCH ×2 (09:00→20:14)
[2017-10-26] MEDS: GABAPENTIN 100 MG CAP PEG SCH ×3 (09:00→20:14)
[2017-10-26] MEDS: FAMOTIDINE 20 MG TAB PEG SCH (09:00)
[2017-10-26] MEDS: LEVOFLOXACIN 750MG/D5W 150ML 150 ML IV SCH (11:55)
[2017-10-26] MEDS: FUROSEMIDE INJ 10 MG/ML 4 ML VIAL IV SCH (11:55)
[2017-10-26 12:36] LABS: INR 1.51; PROTHROMBIN TIME 17.1 seconds (11.9-14.5)
[2017-10-26 12:37] LABS: PARTIAL THROMBOPLASTIN TIME 49.5 seconds (23.8-35.5)
--- NOTE | 2017-10-26 16:34 | Diagnostic Imaging Report ---
EXAM: ABDOMEN-1VIEW (KUB) DATE: 10/26/2017 3:53 PM INDICATION: Dobbhoff placement COMPARISON: None FINDINGS: Moderate motion limits. Metallic tip of Dobbhoff overlies the gastric bubble. Bowel gas pattern nonobstructive. IMPRESSION: As above. Signed by: Dr. Naseem Palafox MD on 10/26/2017 4:31 PM
[2017-10-26] MEDS: WARFARIN SOD 2.5 MG TAB PEG SCH (17:00)
[2017-10-26] MEDS: CHOLESTYRAMINE 4 GM PACKET PEG PRN (20:14)
[2017-10-26] MEDS: RISPERIDONE 0.5 MG TAB PO PRN (20:15)
--- NOTE | 2017-10-26 20:32 | Progress Note ---
DATE: INTERNAL MEDICINE PROGRESS NOTE SUBJECTIVE: Patient is still on the ventilator machine. PHYSICAL EXAM VITAL SIGNS: Blood saturation 94/59. Temperature 97.6. Heart rate 80 per minute. Respiratory rate 20 per minute. Oxygen saturation is 92%. HEART: Regular rhythm. Normal S1, S2 sounds. LUNGS: Clear bilaterally. ABDOMEN: Soft. EXTREMITIES: Show no evidence of cyanosis, edema or trauma. BLOOD WORK: We have BMP; sodium 138, potassium 3.8, chloride 97, CO2 31, BUN 21, creatinine 0.59, glucose 146. On the CBC, white blood count 10.0, hemoglobin 10.4, hematocrit 32.9, platelet count 227,000. PT 17.1, INR 1.51, PTT 49.5. AST 48, ALT 30, total bilirubin 0.4, alkaline phosphatase 177. FINAL IMPRESSION 1. Tazvk-yt-omaduod respiratory failure. 2. Aspiration pneumonia. 3. Right colonic mass. 4. Anemia of chronic disease. 5. Swdfb-bv-gfcwpqs systolic congestive heart failure with an ejection fraction of only 10%. 6. Implantable cardiac defibrillator. 7. Paroxysmal atrial fibrillation. PLAN OF TREATMENT: He has an NG tube now. We will consult Dr. Mark Ma from GI to see if he can put another PEG tube. In the meantime, he had an NG tube. Continue current PEG tube feedings. Continue Levaquin 500 mg IV daily. Continue Levophed as needed for systolic blood pressures less than 90. Continue carvedilol 6.25 mg daily, gabapentin 100 mg 3 times a day, Aldactone 25 mg twice a day, midodrine 5 mg 3 times a day. Continue monitoring blood sugar q.6 h. Continue Questran 4 g twice a day because of diarrhea also. The stool for C. difficile has been checked and is negative for C. difficile. Continue zinc oxide 1 g daily to the local open area. Continue Coumadin 2.5 mg once a day. Continue Seroquel 12.5 mg twice a day. Continue with Tylenol 650 mg q.6 h. as needed, furosemide 40 mg daily, lisinopril 2.5 mg daily, neomycin and Polysporin hydrocortisone cream twice a day to the skin rash. Continue Zofran 4 mg IV q.6 h., Risperdal 0.25 mg q.6 h. as needed for agitation, Xanax 0.25 mg q.6 h. as needed, Pepcid 20 mg daily, Zoloft 50 mg daily, albuterol and Atrovent q.6 h. while awake, D50 IV push as needed, and Tylenol 650 mg q.6 h. as needed. We are going to continue current medication regimen. Wean as tolerated from the ventilator machine although it is going to be very difficult because of the ejection fraction being so low and the physical deconditioning, the patient also has been on the ventilator for several months. Patient had right colonic mass. Dr. Mark Ma will evaluate the patient, but I suspect that the patient had a very poor prognosis. End-stage cardiomyopathy, he is not a candidate for any type of surgical intervention anyway. Family is aware and they want to continue full care. Job#: [id number] GEORGE
[2017-10-27] VITALS (96 sets, daily range): BP systolic 64–117; BP diastolic 51–88
[2017-10-27] MEDS: ALPRAZOLAM 0.25 MG TAB PEG SCH ×3 (00:20→13:00)
[2017-10-27] MEDS: ALBUTEROL/IPRATROPIUM 3 ML NEB NEB PRN ×3 (00:30→19:00)
[2017-10-27] MEDS: IPRATROPIUM/ALBUTEROL SULFATE 4 GM INH INH SCH ×4 (01:00→19:00)
[2017-10-27 05:13] LABS: INR 1.5
[2017-10-27] MEDS: INSULIN LISPRO 100 UNIT/1 ML 3ML VIAL SQ SCH ×3 (05:24→23:45)
[2017-10-27] MEDS: BUDESONIDE 0.5MG/2 ML NEB NEB SCH ×2 (07:55→23:00)
[2017-10-27] MEDS: LEVOFLOXACIN 750MG/D5W 150ML 150 ML IV SCH (08:30)
[2017-10-27] MEDS: GABAPENTIN 100 MG CAP PEG SCH ×4 (08:30→20:51)
[2017-10-27] MEDS ORDERED: PHYTONADIONE 10 MG/ML AMP IV ONE (08:30)
[2017-10-27] MEDS: SPIRONOLACTONE 25 MG TAB PEG SCH ×3 (08:30→17:30)
[2017-10-27] MEDS: MIDODRINE HCL 5 MG TABLET PO SCH ×3 (08:31→20:51)
[2017-10-27] MEDS: FAMOTIDINE 20 MG TAB PEG SCH ×2 (08:31→11:30)
[2017-10-27] MEDS: LISINOPRIL 2.5 MG TAB PO SCH (08:31)
[2017-10-27] MEDS: ENOXAPARIN SOD INJ 40 MG/0.4 ML SYR SC SCH (08:32)
[2017-10-27] MEDS: SERTRALINE HCL 50 MG TAB PO SCH ×2 (08:32→11:30)
[2017-10-27] MEDS: QUETIAPINE FUMARATE 25 MG TAB PO SCH ×3 (08:32→20:52)
[2017-10-27] MEDS: NEOMYCIN/POLYMYX/HYDROC (OTIC) 10 ML BTL OT SCH (08:33)
[2017-10-27] MEDS: ZINC OXIDE 30 GM TUBE TOP SCH (09:00)
[2017-10-27] MEDS ORDERED: PHYTONADIONE 10MG/ML 20 MG in SODIUM CHLORIDE 0.9% 100 ML IV ONE (09:15)
[2017-10-27] MEDS ORDERED: SODIUM CHLORIDE 0.9% 1000ML 1,000 ML ONE (10:05)
--- NOTE | 2017-10-27 13:23 | Progress Note ---
DATE: INTERNAL MEDICINE PROGRESS NOTE SUBJECTIVE: The patient is still on a ventilator. He is hypotensive at times. PHYSICAL EXAM VITAL SIGNS: Blood pressure is 100/57, temperature degrees, heart rate 85 per minute, respiratory rate is 22 per minute, oxygen saturation 100%. HEART: Regular rhythm. Normal S1, S2 sounds. LUNGS: Showed decreased breath sounds bilaterally. ABDOMEN: Soft. Has a new PEG tube in place. EXTREMITIES: Show atrophy of both lower extremities. On the BMP, sodium 138, potassium 3.8, chloride 97, CO2 31, BUN 21, creatinine 0.59, glucose 146. On the CBC, white blood count 10.000, hemoglobin 10.4, hematocrit 32.9, platelet count 287,000. PT 17.0, PTT 49.5, INR 1.50. AST 48, ALT 30, total bilirubin 0.4, alkaline phosphatase 177. FINAL IMPRESSIONS 1. Acute on chronic respiratory failure. 2. 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 3. Chronic systolic congestive heart failure secondary to end-stage cardiomyopathy. 4. Dysphagia, status post percutaneous endoscopic gastrostomy placement. 5. Hypotension. 6. History of coronary artery disease. 7. History of diabetes mellitus type 2. PLAN OF TREATMENT: Continue ventilator support. Continue Pulmicort twice a day. Albuterol and Atrovent q.6 hours. He is on Levaquin IV daily. Continue Levophed as needed for systolic blood pressure less than 90. Coreg has been discontinued. Going to discontinue lisinopril because of the episode of hypotension. He is on gabapentin 100 mg 3 times a day. Midodrine 5 mg 3 times a day. Continue monitoring blood sugar q.6 hours. He is on Questran twice a day because of diarrhea. Continue D50 IV push as needed for blood sugar less than 60. Coumadin 2.5 mg daily. Continue monitoring PT and INR for a goal of INR 2.0 to 3.0. He is Seroquel 12.5 mg twice a day. He is on Tylenol 650 mg q.6 hours as needed, furosemide 40 mg daily which we are going to hold for systolic blood pressure less than 90. Continue with Zofran 4 mg IV q.6 hours, Risperdal 0.25 mg q.6 hours as needed, alprazolam 0.25 mg q.6 hours as needed, Pepcid 20 mg daily, Zoloft 50 mg daily, albuterol and Atrovent q.6 hours as needed. Prognosis is very poor due to the fact that patient is ventilator dependent and unable to be weaned off the ventilator, hypotensive at times, and also with end-stage cardiomyopathy. I discussed the case with the family in the past about the possibility of removing the life support and making him hospice, but both the patient and the family do not want to do that, so they want to continue current care. Prognosis remains very poor. Arrangements are going to be underway for him to be transferred to the ventilator unit at [facility], where he was before, when he is more stable. Job#: [id number] TA
--- NOTE | 2017-10-27 13:47 | Operative Report ---
DATE OF PROCEDURE: October 27, 2017 REFERRING PHYSICIAN: Dr. Milton Roper OPERATION PERFORMED: EGD with PEG tube replacement. INDICATIONS FOR PROCEDURE: Patient with dysphagia, G-tube dependent, G-tube accidentally dislodged. ANESTHESIA: Patient was done under MAC anesthesia. Please see anesthesiologist's note. PROCEDURE: With the patient in the supine position, the flexible fiberoptic Olympus gastroscope was introduced into the esophagus under direct visualization without any difficulty. There were some patchy erythema noted in the distal esophagus. The scope was then advanced with ease into the stomach traversing a moderate-size hiatal hernia. Mucosa overlying the antrum and the body revealed some patchy erythema. Pylorus was of normal contour and shape, was intubated with ease, and the scope was advanced all the way to the second portion of the duodenum. The scope was then withdrawn slowly and mucosa overlying the proximal second portion and the duodenal bulb appeared to be within normal limits. The scope was then withdrawn back into the stomach and retroflexed. The fundus and the cardia could not be visualized as the patient continued to belch the insufflated air. The scope was then straightened out and PEG tube replacement was carried out in the usual fashion through the old G-tube stoma. The scope was subsequently withdrawn after documenting a good positioning of the intragastric bumper. Patient tolerated the procedure well. IMPRESSION 1. Distal esophagitis. 2. Moderate-size hiatal hernia. 3. Gastritis, mild. 4. PEG tube replacement carried out in the usual fashion through the old G-tube stoma. PLAN: Can use G-tube. Job#: [id number] JIV cc:DR. MILTON ROPER
[2017-10-27] MEDS: FUROSEMIDE INJ 10 MG/ML 4 ML VIAL IV SCH (15:00)
[2017-10-27] MEDS: WARFARIN SOD 2.5 MG TAB PO SCH (17:30)
[2017-10-27] MEDS ORDERED: KETAMINE HCL INJ 50 MG/ML 10 ML VIAL ONE (19:22)
[2017-10-27] MEDS ORDERED: MIDAZOLAM HCL 2 MG/2 ML VIAL ONE (19:22)
[2017-10-27] MEDS ORDERED: PROPOFOL IV EMULSION 10 MG/ML 50 ML VIAL ONE (19:55)
[2017-10-28] VITALS (47 sets, daily range): BP systolic 88–120; BP diastolic 59–96
[2017-10-28] MEDS: IPRATROPIUM/ALBUTEROL SULFATE 4 GM INH INH SCH ×4 (01:00→19:00)
[2017-10-28] MEDS: INSULIN LISPRO 100 UNIT/1 ML 3ML VIAL SQ SCH ×6 (05:55→23:50)
[2017-10-28] MEDS: BUDESONIDE 0.5MG/2 ML NEB NEB SCH ×2 (07:07→19:00)
[2017-10-28] MEDS: ALBUTEROL/IPRATROPIUM 3 ML NEB NEB PRN ×3 (07:07→19:00)
[2017-10-28 08:34] LABS: ALANINE AMINOTRANSFERASE 23 IU/L (0-55); ALBUMIN 2.8 g/dL (3.5-5.0); ALBUMIN/GLOBULIN RATIO 0.6 (0.8-2.0); ALKALINE PHOSPHATASE 176 IU/L (40-150); BLOOD UREA NITROGEN 24 mg/dL (7-26); BUN/CREATININE RATIO 40 (6-25); CALCIUM 9.8 mg/dL (8.4-10.2); CARBON DIOXIDE 32 mmol/L (22-29); CHLORIDE 99 mmol/L (98-107); EST GLOMERULAR FILTRATION RATE > 60 ML/MIN (60-); GLUCOSE 179 mg/dL (74-118); SODIUM 141 mmol/L (136-145)
[2017-10-28] MEDS: SPIRONOLACTONE 25 MG TAB PEG SCH ×2 (09:12→18:10)
[2017-10-28] MEDS: ZINC OXIDE 30 GM TUBE TOP SCH (09:12)
[2017-10-28] MEDS: FAMOTIDINE 20 MG TAB PEG SCH (09:12)
[2017-10-28] MEDS: SERTRALINE HCL 50 MG TAB PO SCH (09:12)
[2017-10-28] MEDS: GABAPENTIN 100 MG CAP PEG SCH ×3 (09:12→20:38)
[2017-10-28] MEDS: MIDODRINE HCL 5 MG TABLET PO SCH ×3 (09:12→20:38)
[2017-10-28] MEDS: QUETIAPINE FUMARATE 25 MG TAB PO SCH ×2 (09:12→20:38)
[2017-10-28] MEDS: FUROSEMIDE INJ 10 MG/ML 4 ML VIAL IV SCH (09:12)
[2017-10-28] MEDS: ENOXAPARIN SOD INJ 40 MG/0.4 ML SYR SC SCH ×2 (09:13→20:39)
[2017-10-28 16:30] LABS: INR 1.28
--- NOTE | 2017-10-28 17:19 | Discharge Summary ---
HISTORY OF PRESENT ILLNESS: A 67-year-old male with past medical history positive for end-stage cardiomyopathy with an ejection fraction of less than 10%, history of chronic ventilator dependence, history of coronary artery disease, history of paroxysmal atrial fibrillation, history of aspiration pneumonia, history of implantable cardiac defibrillator, history of chronic hypertension. Patient came here, transferred [facility] because of concern of worsening respiratory failure. The patient was started on IV Levaquin which was discontinued today by infectious disease specialist. He pulled out the PEG tube which was replaced again by Dr. Mark Ma. CT of the abdomen was done and he had a mass on the right colon. Patient is very poor candidate for any type of surgical intervention which will be deadly for him. He has an ejection fraction of 10% and it would be prohibited to do any kind of surgery intervention. We consulted Dr. Mark Ma for gastroenterology anyway for the colonic mass. He is considering colonoscopy, but patient is extremely unstable for any type of procedure right now, especially surgery because of the colonic mass, so if Dr. Mark Ma is going to do a colonoscopy before [facility], then we are going to hold on on the colonoscopy, but if he is not planning to do it then the patient might be able to go to [facility] today where he usually lives. He is chronically dependent on the ventilator. He has been unable to be weaned off the ventilator several times in the past. He has end-stage cardiomyopathy with an ejection fraction of 10%. Any type of surgical intervention will be prohibited in this patient due to the very poor prognosis, ventilator-dependent, and end-stage cardiomyopathy, history of coronary artery disease on top of that. PHYSICAL EXAM VITAL SIGNS: Blood pressure 111/79, temperature 96.6, heart rate 109 per minute, respiratory rate 24 per minute, oxygen saturation 100%. HEART: Shows regular rhythm. Normal S1, S2 sounds. LUNGS: Clear bilaterally. ABDOMEN: Soft. He has a PEG tube in place. EXTREMITIES: Show no evidence of cyanosis. No trauma. On the BMP, sodium 141, potassium 4.0, chloride 99, CO2 32, BUN 24, creatinine 0.60, glucose 179. CBC: White blood count 10.0, hemoglobin 10.4, hematocrit 32.9, platelet count 227,000. PT 17.0, INR 1.50, PTT 49.5. AST 26, ALT 23, total bilirubin 0.3, alkaline phosphatase 175. FINAL IMPRESSIONS 1. Acute on chronic respiratory failure. 2. Lower pneumonia. 3. End-stage cardiomyopathy with ejection fraction less than 10%. 4. Paroxysmal atrial fibrillation. 5. Implantable cardiac defibrillator. 6. Anemia of chronic disease. 7. Right colonic mass. 8. History of coronary artery disease. 9. Dysphagia. PLAN OF TREATMENT: Continue current ventilator support. Continue albuterol and Atrovent q.6 hours. Continue with gabapentin 100 mg 3 times a day, zinc oxide one application daily 1 g; D50 IV push as needed for blood sugar less than 60. Tylenol 650 mg q.6 hours as needed, Lovenox 40 mg subcutaneously twice a day, Glucagon 1 mg subcutaneous q.8 hours as needed for hypoglycemia. Albuterol and Atrovent [id number] and as needed. Continue monitoring blood sugar q.6 hours. Continue Questran 4 grams twice a day which, by the way, we checked stool for C. difficile, came back negative. To continue furosemide 40 mg daily, lisinopril 50 mg daily, Seroquel 12.5 mg twice a day, Ambien 5 mg at night p.r.n. for sleep, Pepcid 20 mg daily, Aldactone 25 mg twice a day, Zofran 4 mg q.6 hours as needed, Coumadin 2.5 mg daily, Risperdal 0.25 mg q.6 hours. We have discontinue lisinopril because the patient is very hypotensive, so he cannot tolerate lisinopril. As I said, if okay with Dr. Mark Ma, if he is not going to do a colonoscopy then the patient can to be transferred to [facility]. Prognosis is extremely poor. I discussed the case with the family. I offered hospice comfort care, but the family and the patient do not want that. They want full code and continue current medication regimen. MILTON ROPER MD Job#: [id number] TA
[2017-10-28] MEDS: WARFARIN SOD 2.5 MG TAB PO SCH (18:10)
[2017-10-29] VITALS (35 sets, daily range): BP systolic 79–129; BP diastolic 55–106
[2017-10-29] MEDS: IPRATROPIUM/ALBUTEROL SULFATE 4 GM INH INH SCH ×4 (01:00→19:00)
[2017-10-29 04:45] LABS: BASOPHILS # (AUTO) 0.1 (0.0-0.1); BASOPHILS % 0.5 % (0.0-1.0); EOSINOPHILS # (AUTO) 0.6 (0.0-0.4); EOSINOPHILS % 4.3 % (0.0-6.0); HEMATOCRIT 33.6 % (38.2-49.6); HEMOGLOBIN 10.8 g/dL (14.0-18.0); LYMPHOCYTES # (AUTO) 2.1 (1.0-3.2); LYMPHOCYTES % 14.9 % (18.0-39.1); MEAN CORPUSCULAR HEMOGLOBIN 30.3 pg (28-32); MEAN CORPUSCULAR HGB CONC 32.1 g/dL (31-35); MEAN CORPUSCULAR VOLUME 94.1 fL (81-99); MONOCYTES # (AUTO) 1.5 (0.2-0.8); MONOCYTES % 10.8 % (4.4-11.3); NEUTROPHILS # (AUTO) 9.5 (2.1-6.9); PLATELET COUNT 269 x10e3/uL (140-360); RED BLOOD COUNT 3.57 x10e6/uL (4.3-5.7); RED CELL DISTRIBUTION WIDTH 16.3 % (11.7-14.4)
[2017-10-29 04:58] LABS: ANION GAP 14.2 mmol/L (8-16); BLOOD UREA NITROGEN 30 mg/dL (7-26); BUN/CREATININE RATIO 46 (6-25); CALCIUM 9.5 mg/dL (8.4-10.2); CARBON DIOXIDE 32 mmol/L (22-29); CHLORIDE 97 mmol/L (98-107); CREATININE, SERUM 0.65 mg/dL (0.72-1.25); EST GLOMERULAR FILTRATION RATE > 60 ML/MIN (60-); GLUCOSE 156 mg/dL (74-118); POTASSIUM 4.2 mmol/L (3.5-5.1); SODIUM 139 mmol/L (136-145)
[2017-10-29] MEDS: INSULIN LISPRO 100 UNIT/1 ML 3ML VIAL SQ SCH ×3 (05:34→17:48)
[2017-10-29 06:42] LABS: EOSINOPHILS % (MANUAL) 2 % (0-7); LYMPHOCYTES % (MANUAL) 17 % (19-48); MONOCYTES % (MANUAL) 12 % (3.4-9.0); NEUTROPHILS % (MANUAL) 69 % (40-74)
[2017-10-29 06:43] LABS: ANISOCYTOSIS SLIGHT; PLATELET ESTIMATE ADEQUATE; PLATELET MORPHOLOGY COMMENT NORMAL; RBC MORPHOLOGY COMMENT NORMAL
[2017-10-29] MEDS: BUDESONIDE 0.5MG/2 ML NEB NEB SCH ×2 (07:15→20:50)
[2017-10-29] MEDS: ALBUTEROL/IPRATROPIUM 3 ML NEB NEB PRN ×4 (07:15→20:40)
[2017-10-29] MEDS: ZINC OXIDE 30 GM TUBE TOP SCH (08:45)
[2017-10-29] MEDS: CHOLESTYRAMINE 4 GM PACKET PEG PRN ×2 (09:22→18:58)
[2017-10-29] MEDS: FUROSEMIDE INJ 10 MG/ML 4 ML VIAL IV SCH (09:27)
[2017-10-29] MEDS: SPIRONOLACTONE 25 MG TAB PEG SCH ×2 (09:27→17:48)
[2017-10-29] MEDS: GABAPENTIN 100 MG CAP PEG SCH ×3 (09:27→21:56)
[2017-10-29] MEDS: MIDODRINE HCL 5 MG TABLET PO SCH ×3 (09:28→21:56)
[2017-10-29] MEDS: ENOXAPARIN SOD INJ 40 MG/0.4 ML SYR SC SCH ×2 (09:28→21:57)
[2017-10-29] MEDS: FAMOTIDINE 20 MG TAB PEG SCH (09:28)
[2017-10-29] MEDS: SERTRALINE HCL 50 MG TAB PO SCH (09:28)
[2017-10-29] MEDS: QUETIAPINE FUMARATE 25 MG TAB PO SCH ×2 (09:28→21:56)
[2017-10-29 14:21] LABS: INR 1.23; PROTHROMBIN TIME 14.6 seconds (11.9-14.5)
[2017-10-29] MEDS: ACETAMINOPHEN 325 MG/10 ML UDC NG PRN (16:30)
[2017-10-29] MEDS: WARFARIN SOD 2.5 MG TAB PO SCH (17:48)
[2017-10-30] VITALS (10 sets, daily range): BP systolic 95–124; BP diastolic 63–85
[2017-10-30] MEDS: INSULIN LISPRO 100 UNIT/1 ML 3ML VIAL SQ SCH ×5 (00:35→23:16)
[2017-10-30] MEDS: ALBUTEROL/IPRATROPIUM 3 ML NEB NEB PRN ×4 (01:50→19:05)
[2017-10-30 04:44] LABS: BASOPHILS # (AUTO) 0.1 (0.0-0.1); BASOPHILS % 0.4 % (0.0-1.0); EOSINOPHILS # (AUTO) 0.5 (0.0-0.4); EOSINOPHILS % 2.2 % (0.0-6.0); HEMATOCRIT 33.7 % (38.2-49.6); HEMOGLOBIN 10.8 g/dL (14.0-18.0); LYMPHOCYTES # (AUTO) 2.8 (1.0-3.2); LYMPHOCYTES % 12.2 % (18.0-39.1); MEAN CORPUSCULAR HEMOGLOBIN 30.3 pg (28-32); MEAN CORPUSCULAR VOLUME 94.4 fL (81-99); MONOCYTES # (AUTO) 2.5 (0.2-0.8); MONOCYTES % 11.1 % (4.4-11.3); NEUTROPHILS # (AUTO) 16.4 (2.1-6.9); NEUTROPHILS % 72.6 % (38.7-80.0); PLATELET COUNT 281 x10e3/uL (140-360); RED BLOOD COUNT 3.57 x10e6/uL (4.3-5.7); RED CELL DISTRIBUTION WIDTH 16.2 % (11.7-14.4)
[2017-10-30 04:57] LABS: INR 1.28
[2017-10-30 05:05] LABS: ALANINE AMINOTRANSFERASE 16 IU/L (0-55); ALBUMIN 2.7 g/dL (3.5-5.0); ALBUMIN/GLOBULIN RATIO 0.6 (0.8-2.0); ALKALINE PHOSPHATASE 177 IU/L (40-150); ANION GAP 14.6 mmol/L (8-16); BLOOD UREA NITROGEN 29 mg/dL (7-26); BUN/CREATININE RATIO 48 (6-25); CALCIUM 9.7 mg/dL (8.4-10.2); CARBON DIOXIDE 31 mmol/L (22-29); CHLORIDE 98 mmol/L (98-107); CREATININE, SERUM 0.61 mg/dL (0.72-1.25); EST GLOMERULAR FILTRATION RATE > 60 ML/MIN (60-); GLUCOSE 145 mg/dL (74-118); POTASSIUM 4.6 mmol/L (3.5-5.1); SODIUM 139 mmol/L (136-145)
--- NOTE | 2017-10-30 06:02 | Diagnostic Imaging Report ---
CHEST SINGLE (PORTABLE), 10/30/2017 5:00 AM Technique: CHEST SINGLE (PORTABLE) Comparison: 10/24/2017 Clinical history: Pneumonia Findings: See Impression. Lung apices are partially excluded. Impression: 1. Lines/Tubes: Stable ET tube 5 cm above the gila left chest wall ICD, inferior median sternotomy wire. 2. Stable enlarged cardiac silhouette. 3. Stable appearance of the lungs with bilateral predominantly interstitial opacities. 4. Stable small effusions. Signed by: Dr Ebony Sawant MD on 10/30/2017 5:58 AM
[2017-10-30] MEDS: IPRATROPIUM/ALBUTEROL SULFATE 4 GM INH INH SCH ×3 (07:00→19:05)
[2017-10-30] MEDS: BUDESONIDE 0.5MG/2 ML NEB NEB SCH ×2 (07:35→19:00)
[2017-10-30] MEDS: ONDANSETRON HCL INJ 2 MG/ML VIAL IV PRN (08:04)
[2017-10-30] MEDS: CHOLESTYRAMINE 4 GM PACKET PEG PRN ×2 (08:06→23:02)
[2017-10-30] MEDS: LORAZEPAM 0.5 MG TAB PO PRN ×2 (08:15→22:00)
[2017-10-30] MEDS: SPIRONOLACTONE 25 MG TAB PEG SCH ×2 (08:54→17:09)
[2017-10-30] MEDS: FAMOTIDINE 20 MG TAB PEG SCH (08:54)
[2017-10-30] MEDS: MIDODRINE HCL 5 MG TABLET PO SCH ×3 (08:54→21:58)
[2017-10-30] MEDS: ENOXAPARIN SOD INJ 40 MG/0.4 ML SYR SC SCH ×2 (08:54→21:58)
[2017-10-30] MEDS: GABAPENTIN 100 MG CAP PEG SCH ×3 (08:54→21:58)
[2017-10-30] MEDS: SERTRALINE HCL 50 MG TAB PO SCH (08:54)
[2017-10-30] MEDS: ZINC OXIDE 30 GM TUBE TOP SCH (08:54)
[2017-10-30] MEDS: QUETIAPINE FUMARATE 25 MG TAB PO SCH ×2 (08:54→21:58)
[2017-10-30] MEDS: FUROSEMIDE INJ 10 MG/ML 4 ML VIAL IV SCH (08:54)
[2017-10-30] MEDS: PIPER-TAZ 3.375 GM 50 ML IV SCH ×2 (14:28→21:58)
[2017-10-30] MEDS: ACETAMINOPHEN 325 MG/10 ML UDC NG PRN (15:16)
[2017-10-30] MEDS ORDERED: SODIUM CHLORIDE 0.9% 250ML 250 ML ONE (16:05)
[2017-10-30] MEDS: WARFARIN SOD 3 MG TAB PO SCH (17:18)
[2017-10-30] MEDS ORDERED: SODIUM CHLORIDE 0.9% 0 ML ONE (21:36)
[2017-10-30] MEDS: RISPERIDONE 0.5 MG TAB PO PRN (22:57)
[2017-10-31] VITALS (29 sets, daily range): BP systolic 78–114; BP diastolic 47–84
[2017-10-31] MEDS ORDERED: METOPROLOL TARTRATE INJ 1 MG/ML VIAL ONE (00:08)
[2017-10-31] MEDS ORDERED: METOPROLOL TARTRATE INJ 1 MG/ML VIAL IV ONE (00:15)
[2017-10-31] MEDS: IPRATROPIUM/ALBUTEROL SULFATE 4 GM INH INH SCH ×4 (01:00→19:40)
[2017-10-31 04:27] LABS: BASOPHILS # (AUTO) 0.1 (0.0-0.1); BASOPHILS % 0.3 % (0.0-1.0); EOSINOPHILS # (AUTO) 0.5 (0.0-0.4); EOSINOPHILS % 2.3 % (0.0-6.0); HEMATOCRIT 31.5 % (38.2-49.6); HEMOGLOBIN 10.2 g/dL (14.0-18.0); LYMPHOCYTES # (AUTO) 1.4 (1.0-3.2); LYMPHOCYTES % 6.8 % (18.0-39.1); MEAN CORPUSCULAR HEMOGLOBIN 30.4 pg (28-32); MEAN CORPUSCULAR HGB CONC 32.4 g/dL (31-35); MONOCYTES # (AUTO) 0.7 (0.2-0.8); MONOCYTES % 3.6 % (4.4-11.3); NEUTROPHILS # (AUTO) 17.3 (2.1-6.9); NEUTROPHILS % 85.4 % (38.7-80.0); PLATELET COUNT 270 x10e3/uL (140-360); RED BLOOD COUNT 3.35 x10e6/uL (4.3-5.7); RED CELL DISTRIBUTION WIDTH 15.9 % (11.7-14.4)
[2017-10-31 04:38] LABS: INR 1.41; PROTHROMBIN TIME 16.2 seconds (11.9-14.5)
[2017-10-31 04:49] LABS: ALANINE AMINOTRANSFERASE 15 IU/L (0-55); ALBUMIN 2.5 g/dL (3.5-5.0); ALBUMIN/GLOBULIN RATIO 0.6 (0.8-2.0); ALKALINE PHOSPHATASE 131 IU/L (40-150); ANION GAP 15.6 mmol/L (8-16); BLOOD UREA NITROGEN 29 mg/dL (7-26); BUN/CREATININE RATIO 52 (6-25); CALCIUM 9.5 mg/dL (8.4-10.2); CARBON DIOXIDE 29 mmol/L (22-29); CHLORIDE 97 mmol/L (98-107); CREATININE, SERUM 0.56 mg/dL (0.72-1.25); EST GLOMERULAR FILTRATION RATE > 60 ML/MIN (60-); GLUCOSE 119 mg/dL (74-118); POTASSIUM 4.6 mmol/L (3.5-5.1); SODIUM 137 mmol/L (136-145)
[2017-10-31] MEDS: PIPER-TAZ 3.375 GM 50 ML IV SCH (05:14)
[2017-10-31] MEDS: INSULIN LISPRO 100 UNIT/1 ML 3ML VIAL SQ SCH ×3 (05:14→18:00)
--- NOTE | 2017-10-31 06:22 | Diagnostic Imaging Report ---
CHEST SINGLE (PORTABLE), 10/31/2017 5:00 AM Technique: CHEST SINGLE (PORTABLE) Comparison: 11/09/2017 Clinical history: Pneumonia Findings: See Impression Impression: 1. Lines/Tubes: Stable ET tube 4 cm above the gila, left chest wall ICD, inferior median sternotomy wire. 2. Stable enlarged cardiomediastinal silhouette. 3. Stable appearance of the lungs with bilateral predominantly interstitial opacities. 4. Probable small effusions, stable. Signed by: Dr Ebony Sawant MD on 10/31/2017 6:19 AM
[2017-10-31] MEDS: ACETAMINOPHEN 325 MG/10 ML UDC NG PRN ×2 (06:47→20:31)
[2017-10-31] MEDS: BUDESONIDE 0.5MG/2 ML NEB NEB SCH (07:00)
[2017-10-31] MEDS: ALBUTEROL/IPRATROPIUM 3 ML NEB NEB PRN (07:00)
[2017-10-31 07:41] LABS: ABG PH 7.47 (7.31-7.41)
[2017-10-31 07:42] LABS: ABG HCO3 33 mmol/L (23-28); ABG PCO2 45 mmHg (41-51); ABG PO2 100 mmHg (80-105)
[2017-10-31] MEDS: ONDANSETRON HCL INJ 2 MG/ML VIAL IV PRN (07:47)
[2017-10-31] MEDS: FUROSEMIDE INJ 10 MG/ML 4 ML VIAL IV SCH (09:27)
[2017-10-31] MEDS: SPIRONOLACTONE 25 MG TAB PEG SCH ×2 (09:28→18:39)
[2017-10-31] MEDS: MIDODRINE HCL 5 MG TABLET PO SCH ×3 (09:28→20:32)
[2017-10-31] MEDS: FAMOTIDINE 20 MG TAB PEG SCH (09:28)
[2017-10-31] MEDS: QUETIAPINE FUMARATE 25 MG TAB PO SCH ×2 (09:28→20:32)
[2017-10-31] MEDS: GABAPENTIN 100 MG CAP PEG SCH ×3 (09:28→20:32)
[2017-10-31] MEDS: SERTRALINE HCL 50 MG TAB PO SCH (09:28)
[2017-10-31] MEDS: ZINC OXIDE 30 GM TUBE TOP SCH (09:28)
[2017-10-31] MEDS: ENOXAPARIN SOD INJ 40 MG/0.4 ML SYR SC SCH ×2 (09:28→20:32)
[2017-10-31] MEDS: CHOLESTYRAMINE 4 GM PACKET PEG PRN ×2 (10:22→20:31)
[2017-10-31] MEDS: LEVOFLOXACIN 500MG/D5W 100ML 100 ML IV SCH (11:49)
[2017-10-31] MEDS: DIPHENHYDRAMINE HCL INJ 50 MG/ML VIAL IV PRN (13:20)
[2017-10-31] MEDS: LORAZEPAM 0.5 MG TAB PO PRN (13:27)
[2017-10-31] MEDS: WARFARIN SOD 3 MG TAB PO SCH (18:39)
--- NOTE | 2017-10-31 18:51 | Progress Note ---
DATE: INTERNAL MEDICINE PROGRESS NOTE SUBJECTIVE: He is a 67-year-old male who has a past medical history positive for chronic ventilator dependency, end-stage cardiomyopathy with an ejection fraction of only 10%, chronically on a ventilator machine, came [facility] where he usually [facility], due to worsening of his respiratory status. Patient was found to have bilateral pneumonia. He also was found to have a mass in the colon. Patient had a very poor prognosis. We approached the family several times about hospice. The family and the patient are refusing hospice. The prognosis is very poor. PHYSICAL EXAM: VITAL SIGNS: Blood pressure 109/77, temperature 98.6, heart rate 114 per minute, respiratory rate 35 per minute, oxygen saturation 100%. HEART: Shows regular rhythm. Normal S1 and S2 sounds. LUNGS: Clear bilaterally but significantly decreased. ABDOMEN: Soft. EXTREMITIES: Show no evidence of cyanosis, edema or trauma. On the BMP: Sodium 137, potassium 4.6, chloride 97, CO2 29, BUN 29, creatinine 0.56, glucose 119. The white blood count is 20,200, hemoglobin 10.2, hematocrit 31.5, platelet count 270,000. PT 16.2, INR 1.41, PTT is 49.5. AST 17, ALT 15, total bilirubin 0.5, alkaline phosphatase 131. FINAL IMPRESSION: 1. Acute on chronic respiratory failure. 2. Bilateral aspiration pneumonia. 3. Acute on chronic systolic congestive heart failure. 4. Diabetes mellitus type 2 with diabetic neuropathy. 5. Anemia of chronic disease. 6. Paroxysmal atrial fibrillation. 7. End-stage cardiomyopathy. PLAN OF TREATMENT: Continue ventilator support. Continue albuterol and Atrovent q.6 h. Continue Levophed as needed for hypotension. We are going to repeat a CBC tomorrow. Also blood culture times 2 because of elevated white blood count of 20,200 and he has to rule out sepsis. Continue Levaquin 500 mg IV once a day. Pepcid 20 mg daily. Aldactone 25 mg twice a day. Zofran 4 mg IV q.6 h. as needed for vomiting. Risperdal 0.25 mg through a PEG tube as needed for agitation. Lovenox 40 mg subcutaneously twice a day. Continue gabapentin 800 mg 3 times a day. Tylenol 650 mg q.6 h. as needed for pain or fever. Zinc oxide one application daily. Continue lorazepam 0.25 mg q.8 h. as needed for anxiety. Continue Glucagon 1 mg IM or decrease the IV push as needed for hypoglycemia. Continue albuterol and Atrovent around the clock. Continue monitoring blood sugar q.6 h. Continue Questran 4 grams twice a day for chronic diarrhea. Continue Coumadin 3 mg daily. Continue furosemide 40 mg daily because of the congestive heart failure. Continue sertraline 50 mg daily. Continue midodrine 5 mg 3 times a day for hypotension. Seroquel 12.5 mg twice a twice a day. Ambien 5 mg at night p.r.n. for sleep. Benadryl 25 mg IV q.6 h. as needed for allergies. Patient is confused. Still on the ventilator. Very poor prognosis. We are going to transfer him to [facility] as long as the white blood count is coming down and as long as the blood culture is negative for any type of infection. Job#: [id number] JOHAN
[2017-10-31] MEDS: ZOLPIDEM TARTRATE 5 MG TAB PO PRN (20:31)
[2017-10-31] MEDS ORDERED: SODIUM CHLORIDE 0.9% 1000ML 1,000 ML ONE ×2 (23:06→23:50)
[2017-11-01] VITALS (73 sets, daily range): BP systolic 78–119; BP diastolic 45–83
[2017-11-01] MEDS ORDERED: SODIUM CHLORIDE 0.9% 1000ML 100 ML IV ONE
[2017-11-01] MEDS: VANCOMYCIN 1GM/NS 250 ML 250 ML IV SCH ×2 (00:35→11:34)
[2017-11-01] MEDS: INSULIN LISPRO 100 UNIT/1 ML 3ML VIAL SQ SCH ×4 (00:39→17:33)
[2017-11-01] MEDS: BUDESONIDE 0.5MG/2 ML NEB NEB SCH ×3 (01:45→19:00)
[2017-11-01] MEDS: IPRATROPIUM/ALBUTEROL SULFATE 4 GM INH INH SCH ×4 (01:45→19:00)
[2017-11-01] MEDS: ALBUTEROL/IPRATROPIUM 3 ML NEB NEB PRN ×4 (01:45→19:00)
--- NOTE | 2017-11-01 05:27 | Diagnostic Imaging Report ---
EXAMINATION: CHEST SINGLE (PORTABLE) INDICATION: Line placement. COMPARISON: 10/31/2017 FINDINGS: TUBES and LINES: Tracheostomy tube is stable. AICD is present in good position. LUNGS: Lungs are not well inflated. Left lower lobe airspace opacity. PLEURA: Trace of pleural effusion. HEART AND MEDIASTINUM: Cardiac size is mildly enlarged. BONES AND SOFT TISSUES: No acute osseous lesion. Soft tissues are unremarkable. UPPER ABDOMEN: No free air under the diaphragm. IMPRESSION: Findings are compatible with left lower lobe airspace opacity. Infection versus atelectasis is suspected. Central line placement is not visualized. Signed by: Dr. Dieudonne Donahue M.D. on 11/01/2017 5:24 AM
[2017-11-01 05:53] LABS: BASOPHILS % 0.2 % (0.0-1.0); EOSINOPHILS # (AUTO) 0.6 (0.0-0.4); EOSINOPHILS % 4.6 % (0.0-6.0); HEMATOCRIT 29.2 % (38.2-49.6); HEMOGLOBIN 9.2 g/dL (14.0-18.0); LYMPHOCYTES # (AUTO) 1.6 (1.0-3.2); LYMPHOCYTES % 12.7 % (18.0-39.1); MEAN CORPUSCULAR HEMOGLOBIN 30.4 pg (28-32); MEAN CORPUSCULAR HGB CONC 31.5 g/dL (31-35); MEAN CORPUSCULAR VOLUME 96.4 fL (81-99); MONOCYTES # (AUTO) 0.5 (0.2-0.8); NEUTROPHILS # (AUTO) 9.9 (2.1-6.9); NEUTROPHILS % 76.9 % (38.7-80.0); PLATELET COUNT 245 x10e3/uL (140-360); RED BLOOD COUNT 3.03 x10e6/uL (4.3-5.7); RED CELL DISTRIBUTION WIDTH 15.9 % (11.7-14.4)
[2017-11-01 06:03] LABS: INR 1.45; PROTHROMBIN TIME 16.6 seconds (11.9-14.5)
[2017-11-01 06:11] LABS: ANION GAP 10.2 mmol/L (8-16); BLOOD UREA NITROGEN 25 mg/dL (7-26); BUN/CREATININE RATIO 50 (6-25); CALCIUM 8.3 mg/dL (8.4-10.2); CARBON DIOXIDE 28 mmol/L (22-29); CHLORIDE 103 mmol/L (98-107); EST GLOMERULAR FILTRATION RATE > 60 ML/MIN (60-); GLUCOSE 132 mg/dL (74-118); POTASSIUM 4.2 mmol/L (3.5-5.1); SODIUM 137 mmol/L (136-145)
[2017-11-01] MEDS: MEROPENEM 500MG 500 MG in SODIUM CHLORIDE 0.9% 50ML 50 ML IV SCH ×3 (06:27→21:04)
[2017-11-01 07:33] LABS: EOSINOPHILS % (MANUAL) 2 % (0-7); LYMPHOCYTES % (MANUAL) 16 % (19-48); MONOCYTES % (MANUAL) 5 % (3.4-9.0); NEUTROPHILS % (MANUAL) 76 % (40-74)
[2017-11-01 07:34] LABS: ANISOCYTOSIS SLIGHT; HYPOCHROMASIA SLIGHT; PLATELET ESTIMATE ADEQUATE; RBC MORPHOLOGY COMMENT NORMAL
[2017-11-01 07:35] LABS: PLATELET MORPHOLOGY COMMENT NORMAL
[2017-11-01] MEDS: SPIRONOLACTONE 25 MG TAB PEG SCH ×2 (08:58→17:32)
[2017-11-01] MEDS: QUETIAPINE FUMARATE 25 MG TAB PO SCH ×2 (08:58→21:04)
[2017-11-01] MEDS: SERTRALINE HCL 50 MG TAB PO SCH (08:58)
[2017-11-01] MEDS: FUROSEMIDE INJ 10 MG/ML 4 ML VIAL IV SCH (08:58)
[2017-11-01] MEDS: GABAPENTIN 100 MG CAP PEG SCH ×3 (08:58→21:04)
[2017-11-01] MEDS: MIDODRINE HCL 5 MG TABLET PO SCH ×3 (08:58→21:04)
[2017-11-01] MEDS: FAMOTIDINE 20 MG TAB PEG SCH (08:58)
[2017-11-01] MEDS: RISPERIDONE 0.5 MG TAB PO PRN (11:25)
[2017-11-01] MEDS: ZINC OXIDE 30 GM TUBE TOP SCH (11:32)
[2017-11-01] MEDS: LEVOFLOXACIN 500MG/D5W 100ML 100 ML IV SCH (11:34)
[2017-11-01] MEDS: ENOXAPARIN SOD INJ 40 MG/0.4 ML SYR SC SCH ×2 (11:34→21:04)
[2017-11-01] MEDS ORDERED: LORAZEPAM INJ 2 MG/ML VIAL IV PRN (12:00)
[2017-11-01] MEDS ORDERED: DEXTROSE 5%/0.9% SOD CHL 1,000 ML IV ONE (12:00)
--- NOTE | 2017-11-01 12:36 | Progress Note ---
DATE: November 01, 2017 INTERNAL MEDICINE PROGRESS NOTE SUBJECTIVE: The patient is still on a ventilator. He is running a low-grade temperature. Blood pressure is borderline low, most likely secondary to sepsis. Blood culture has been sent. His x-rays show evidence of some underlying infiltrate. White blood count is greater than yesterday. The patient has a very poor prognosis. His ejection fraction is only 10%. The finally made him do not resuscitate based on the patient's wishes. PHYSICAL EXAMINATION VITAL SIGNS: Blood pressure 97/59. Temperature 99.9. Heart rate 92 per minute. Respiratory rate is 26 per minute. Oxygen saturation 100%. HEART: Regular rhythm. Normal S1 and S2 sounds. LUNGS: Clear bilaterally, but significantly decreased. ABDOMEN: Soft. EXTREMITIES: No evidence of cyanosis, edema or trauma. LABS: On the BMP, sodium 137, potassium 4.2, chloride 103, CO2 28, BUN 25, creatinine 0.50. Glucose 132. On the CBC, white blood count 12.9, hemoglobin 9.2, hematocrit 29.2, platelet count 245,000. PT 16.6, PTT 49.5, INR 1.45. AST 17, ALT 15, total bilirubin 0.5, alkaline phosphatase 131. FINAL IMPRESSION 1. Bxfze-bm-pkwwsra respiratory failure. 2. Aspiration pneumonia. 3. Sepsis with septic shock. 4. End-stage cardiomyopathy with an ejection fraction of less than 10%. PLAN OF TREATMENT: We are going to continue ventilator support. Continue albuterol q.6. H. Continue Levophed as needed for systolic blood pressure less than 90. We are going to start him on D5 normal saline at 80 mL an hour. Monitor him very carefully for any signs of congestive heart failure because of the low ejection fraction. Because of sepsis and potential septic shock, IV fluids are recommended. We are going to, as I said, watch very carefully for any signs of CHF. Continue Levaquin 500 mg IV daily. Continue vancomycin 1 gram IV twice a day until the blood cultures are ready. Continue albuterol and Atrovent q.6 h. Continue monitoring blood sugar q.6 h. and Questran 4 grams twice a day because of diarrhea. He is also on Coumadin 3 mg daily. We are going to increase to 4 mg daily because the INR is not therapeutic yet. Continue furosemide 40 mg daily, sertraline 50 mg daily, Seroquel 12.5 mg twice a day, Ambien 5 mg at night, Benadryl 25 mg q.6 h., meropenem 1 gram IV q.8 h. Continue Pepcid 20 mg daily. Continue Aldactone 25 mg twice a day. Zofran 4 mg IV q.6 hours as needed. Risperdal 0.25 mg via PEG tube q.6 h. as needed for agitation. Ativan 1 mg IV q.4 h. as needed for agitation. Lovenox 40 mg subcutaneously twice a day. Tylenol 650 mg q.6 h. as needed. Gabapentin 800 mg 3 times a day. Zinc oxide 1 gram daily. Patient is critically ill. The finally understood the prognosis of the patient. The patient also agreed yesterday to be a do not resuscitate. Prognosis is very poor. I discussed the case with the and with the nurse. Time spent around 60 minutes. Job#: [id number]
[2017-11-01] MEDS: DIPHENHYDRAMINE HCL INJ 50 MG/ML VIAL IV PRN (14:35)
[2017-11-01] MEDS: WARFARIN SOD 3 MG TAB PO SCH (17:33)
[2017-11-01] MEDS: ZOLPIDEM TARTRATE 5 MG TAB PO PRN (21:05)
[2017-11-02] VITALS (42 sets, daily range): BP systolic 76–140; BP diastolic 49–76
[2017-11-02] MEDS: VANCOMYCIN 1GM/NS 250 ML 250 ML IV SCH ×3 (00:25→23:25)
[2017-11-02] MEDS: IPRATROPIUM/ALBUTEROL SULFATE 4 GM INH INH SCH ×4 (01:00→19:00)
[2017-11-02] MEDS: INSULIN LISPRO 100 UNIT/1 ML 3ML VIAL SQ SCH ×5 (01:17→23:20)
[2017-11-02 04:34] LABS: BASOPHILS % 0.3 % (0.0-1.0); EOSINOPHILS # (AUTO) 0.5 (0.0-0.4); EOSINOPHILS % 4.3 % (0.0-6.0); HEMATOCRIT 26.2 % (38.2-49.6); HEMOGLOBIN 8.2 g/dL (14.0-18.0); LYMPHOCYTES # (AUTO) 1.5 (1.0-3.2); LYMPHOCYTES % 12.5 % (18.0-39.1); MEAN CORPUSCULAR HEMOGLOBIN 30.4 pg (28-32); MEAN CORPUSCULAR HGB CONC 31.3 g/dL (31-35); MONOCYTES # (AUTO) 0.8 (0.2-0.8); MONOCYTES % 6.4 % (4.4-11.3); NEUTROPHILS # (AUTO) 8.8 (2.1-6.9); NEUTROPHILS % 74.4 % (38.7-80.0); PLATELET COUNT 199 x10e3/uL (140-360); RED CELL DISTRIBUTION WIDTH 15.9 % (11.7-14.4)
[2017-11-02 04:43] LABS: INR 1.5
[2017-11-02 04:48] LABS: ANION GAP 9.8 mmol/L (8-16); BLOOD UREA NITROGEN 18 mg/dL (7-26); BUN/CREATININE RATIO 37 (6-25); CALCIUM 8.3 mg/dL (8.4-10.2); CARBON DIOXIDE 28 mmol/L (22-29); CHLORIDE 102 mmol/L (98-107); CREATININE, SERUM 0.49 mg/dL (0.72-1.25); EST GLOMERULAR FILTRATION RATE > 60 ML/MIN (60-); GLUCOSE 156 mg/dL (74-118); POTASSIUM 3.8 mmol/L (3.5-5.1); SODIUM 136 mmol/L (136-145)
[2017-11-02] MEDS: DIPHENHYDRAMINE HCL INJ 50 MG/ML VIAL IV PRN (04:49)
[2017-11-02] MEDS: MEROPENEM 500MG 500 MG in SODIUM CHLORIDE 0.9% 50ML 50 ML IV SCH ×3 (04:49→22:18)
--- NOTE | 2017-11-02 06:33 | Diagnostic Imaging Report ---
EXAMINATION: CHEST SINGLE (PORTABLE) INDICATION: Intubation COMPARISON: 11/01/2017 FINDINGS: TUBES and LINES: AICD is intact. The distal segment of the endotracheal tube/tracheostomy visualized 4 cm above the gila LUNGS: Lungs are not well inflated. Confluent consolidation in the left retrocardiac space. There is perihilar interstital opacities, consistent with interstitial edema. PLEURA: Small left pleural effusion. HEART AND MEDIASTINUM: Cardiac size is moderately enlarged. There are atherosclerotic calcifications within the aorta. BONES AND SOFT TISSUES: No acute osseous lesion. Soft tissues are unremarkable. UPPER ABDOMEN: No free air under the diaphragm. IMPRESSION: Cardiogenic pulmonary edema and small left pleural effusion. Signed by: Dr. Dieudonne Donahue M.D. on 11/02/2017 6:30 AM
[2017-11-02] MEDS: ALBUTEROL/IPRATROPIUM 3 ML NEB NEB PRN ×3 (07:40→18:40)
[2017-11-02] MEDS: BUDESONIDE 0.5MG/2 ML NEB NEB SCH ×2 (07:45→18:40)
[2017-11-02 08:03] LABS: EOSINOPHILS % (MANUAL) 4 % (0-7); LYMPHOCYTES % (MANUAL) 11 % (19-48); MONOCYTES % (MANUAL) 5 % (3.4-9.0); NEUTROPHILS % (MANUAL) 80 % (40-74)
[2017-11-02 08:04] LABS: HYPOCHROMASIA MODERATE; PLATELET ESTIMATE ADEQUATE; PLATELET MORPHOLOGY COMMENT NORMAL; RBC MORPHOLOGY COMMENT NORMAL
[2017-11-02] MEDS: SPIRONOLACTONE 25 MG TAB PEG SCH ×2 (09:03→17:12)
[2017-11-02] MEDS: FAMOTIDINE 20 MG TAB PEG SCH (09:03)
[2017-11-02] MEDS: FUROSEMIDE INJ 10 MG/ML 4 ML VIAL IV SCH (09:03)
[2017-11-02] MEDS: MIDODRINE HCL 5 MG TABLET PO SCH ×3 (09:03→20:34)
[2017-11-02] MEDS: GABAPENTIN 100 MG CAP PEG SCH ×3 (09:03→20:34)
[2017-11-02] MEDS: SERTRALINE HCL 50 MG TAB PO SCH (09:05)
[2017-11-02] MEDS: ENOXAPARIN SOD INJ 40 MG/0.4 ML SYR SC SCH ×2 (09:05→20:34)
[2017-11-02] MEDS: ZINC OXIDE 30 GM TUBE TOP SCH (09:05)
[2017-11-02] MEDS: QUETIAPINE FUMARATE 25 MG TAB PO SCH ×2 (09:05→20:34)
--- NOTE | 2017-11-02 09:30 | Progress Note ---
DATE: INTERNAL MEDICINE PROGRESS NOTE SUBJECTIVE: The patient is on the ventilator complaining of itching. PHYSICAL EXAMINATION VITALS: Blood pressure 117/62, temperature 97.1, heart rate 97 per minute, respiratory rate is 28 per minute, oxygen saturation 98%. HEART: Shows regular rhythm. Normal S1 and S2 sounds. LUNGS: Showed decreased air sounds bilaterally. ABDOMEN: Soft. PEG tube in place. EXTREMITIES: Show atrophy of both lower extremities. On the BMP, sodium 136, potassium 3.8, chloride 102, CO2 28, BUN 18, creatinine 0.49, glucose 156. On the CBC, white blood count 11.8, hemoglobin 8.2, hematocrit 26.2, and platelet count 189,000. PT 17, INR 1.5 and PTT 49.5. AST is 17, ALT 15, total bilirubin 0.5, alkaline phosphatase 131. Blood cultures negative for 24 hours. Sputum culture showed Pseudomonas aeruginosa. Urine culture is negative. The last chest x-ray showed cardiogenic pulmonary edema and small left pleural effusion. PLAN OF TREATMENT: Continue ventilator support. Continue with linezolid IV twice a day. Albuterol and Atrovent q.6 h. Levophed needed for systolic blood pressure of 190. Levaquin 500 mg daily. Vancomycin 1 g IV twice a day. D50 IV push as needed for hypoglycemia. Glucagon 1 mg q.8 h. as needed for hyperglycemia. Albuterol and Atrovent around the clock. Continue monitoring blood sugar q.6 h. Questran 4 g twice a day for chronic diarrhea. We are going to increase the Coumadin to 4 mg daily. Continue furosemide 40 mg daily. Continue sertraline 50 mg daily. Continue Seroquel 12.5 mg twice a day. Ambien 5 mg at night p.r.n. for sleep. Benadryl 25 mg by PEG tube q.6 h. as needed. Meropenem 500 mg IV q. 8 h. Pepcid 20 mg daily. Aldactone 25 mg twice a day. Zofran 4 mg IV q.6 h. as needed. Risperdal 02.5 mg q.6 h. as needed. Lovenox 40 mg subcutaneous twice a day until the INR is more than 2. Lorazepam 1 mg IV q.6 h. as needed for anxiety. Tylenol 650 mg q.6 h. as needed for pain or fever. Gabapentin 100 mg 3 times a day. Zinc oxide one application daily. The patient remains in the ICU. We are going to wait until the blood culture is negative for 3 days. Then we are going to send him back to the correction. IV fluids have been discontinued. We are going to give Lasix 40 mg IV push one time because of CHF. We are going to repeat a chest x-ray tomorrow. Labs have been reviewed. Consultation report has been reviewed. Discussed with the nurses. Time spent 55 minutes. Job#: [id number] NM
[2017-11-02] MEDS: LEVOFLOXACIN 500MG/D5W 100ML 100 ML IV SCH (11:00)
[2017-11-02] MEDS ORDERED: SODIUM CHLORIDE 0.9% 250ML 250 ML ONE (11:23)
[2017-11-02 14:47] LABS: BASOPHILS % 0.2 % (0.0-1.0); EOSINOPHILS # (AUTO) 0.4 (0.0-0.4); EOSINOPHILS % 3.1 % (0.0-6.0); HEMOGLOBIN 8.3 g/dL (14.0-18.0); LYMPHOCYTES # (AUTO) 1.7 (1.0-3.2); LYMPHOCYTES % 13.2 % (18.0-39.1); MEAN CORPUSCULAR HGB CONC 30.7 g/dL (31-35); MEAN CORPUSCULAR VOLUME 97.5 fL (81-99); MONOCYTES # (AUTO) 0.9 (0.2-0.8); MONOCYTES % 6.8 % (4.4-11.3); NEUTROPHILS # (AUTO) 9.7 (2.1-6.9); NEUTROPHILS % 74.4 % (38.7-80.0); PLATELET COUNT 222 x10e3/uL (140-360); RED BLOOD COUNT 2.77 x10e6/uL (4.3-5.7); RED CELL DISTRIBUTION WIDTH 15.9 % (11.7-14.4)
[2017-11-02] MEDS: WARFARIN SOD 2 MG TAB PO SCH (17:00)
[2017-11-02] MEDS ORDERED: BALSAM PERU/CASTOR OIL 5 GM OINT...G. TP SCH (17:00)
[2017-11-02] MEDS: BALSAM PERU/CASTOR OIL 60 GM OINT...G. TP SCH (17:14)
[2017-11-03] VITALS (42 sets, daily range): BP systolic 74–140; BP diastolic 46–111
[2017-11-03] MEDS: IPRATROPIUM/ALBUTEROL SULFATE 4 GM INH INH SCH ×3 (01:00→19:00)
[2017-11-03] MEDS: MEROPENEM 500MG 500 MG in SODIUM CHLORIDE 0.9% 50ML 50 ML IV SCH ×2 (05:11→14:27)
[2017-11-03 05:21] LABS: INR 1.39
[2017-11-03 05:28] LABS: ANION GAP 10.9 mmol/L (8-16); BLOOD UREA NITROGEN 15 mg/dL (7-26); BUN/CREATININE RATIO 33 (6-25); CALCIUM 8.3 mg/dL (8.4-10.2); CARBON DIOXIDE 28 mmol/L (22-29); CHLORIDE 101 mmol/L (98-107); CREATININE, SERUM 0.45 mg/dL (0.72-1.25); EST GLOMERULAR FILTRATION RATE > 60 ML/MIN (60-); GLUCOSE 127 mg/dL (74-118); POTASSIUM 3.9 mmol/L (3.5-5.1); SODIUM 136 mmol/L (136-145)
[2017-11-03] MEDS: INSULIN LISPRO 100 UNIT/1 ML 3ML VIAL SQ SCH ×3 (05:42→17:23)
[2017-11-03 06:31] LABS: BASOPHILS % 0.3 % (0.0-1.0); EOSINOPHILS # (AUTO) 0.5 (0.0-0.4); EOSINOPHILS % 3.3 % (0.0-6.0); HEMATOCRIT 27.9 % (38.2-49.6); HEMOGLOBIN 8.6 g/dL (14.0-18.0); LYMPHOCYTES # (AUTO) 1.9 (1.0-3.2); LYMPHOCYTES % 14.3 % (18.0-39.1); MEAN CORPUSCULAR HGB CONC 30.8 g/dL (31-35); MEAN CORPUSCULAR VOLUME 97.2 fL (81-99); MONOCYTES % 7.1 % (4.4-11.3); NEUTROPHILS # (AUTO) 9.7 (2.1-6.9); NEUTROPHILS % 72.2 % (38.7-80.0); PLATELET COUNT 275 x10e3/uL (140-360); RED BLOOD COUNT 2.87 x10e6/uL (4.3-5.7); RED CELL DISTRIBUTION WIDTH 16.1 % (11.7-14.4)
[2017-11-03] MEDS: ALBUTEROL/IPRATROPIUM 3 ML NEB NEB PRN (07:25)
[2017-11-03] MEDS: BUDESONIDE 0.5MG/2 ML NEB NEB SCH (07:25)
[2017-11-03] MEDS: ACETAMINOPHEN 325 MG/10 ML UDC NG PRN (08:29)
[2017-11-03] MEDS: CHOLESTYRAMINE 4 GM PACKET PEG PRN ×2 (08:30→17:28)
[2017-11-03] MEDS: FUROSEMIDE INJ 10 MG/ML 4 ML VIAL IV SCH (09:15)
[2017-11-03] MEDS: GABAPENTIN 100 MG CAP PEG SCH ×2 (09:15→14:31)
[2017-11-03] MEDS: MIDODRINE HCL 5 MG TABLET PO SCH ×2 (09:15→14:31)
[2017-11-03] MEDS: SPIRONOLACTONE 25 MG TAB PEG SCH ×2 (09:15→17:14)
[2017-11-03] MEDS: FAMOTIDINE 20 MG TAB PEG SCH (09:15)
[2017-11-03] MEDS: ZINC OXIDE 30 GM TUBE TOP SCH (09:16)
[2017-11-03] MEDS: SERTRALINE HCL 50 MG TAB PO SCH (09:16)
[2017-11-03] MEDS: ENOXAPARIN SOD INJ 40 MG/0.4 ML SYR SC SCH (09:16)
[2017-11-03] MEDS: BALSAM PERU/CASTOR OIL 60 GM OINT...G. TP SCH ×2 (09:16→17:11)
[2017-11-03] MEDS: QUETIAPINE FUMARATE 25 MG TAB PO SCH (09:16)
[2017-11-03] MEDS ORDERED: SODIUM CHLORIDE 0.9% 250ML 250 ML ONE (10:53)
[2017-11-03] MEDS: LEVOFLOXACIN 500MG/D5W 100ML 100 ML IV SCH (11:19)
[2017-11-03] MEDS ORDERED: LORAZEPAM 0.5 MG TAB PO PRN (12:00)
[2017-11-03] MEDS ORDERED: BUSPIRONE HCL 5 MG TAB PO PRN (12:00)
[2017-11-03] MEDS: VANCOMYCIN 1GM/NS 250 ML 250 ML IV SCH (12:24)
[2017-11-03] MEDS: WARFARIN SOD 2 MG TAB PO SCH (17:16)
[2017-11-03] MEDS ORDERED: FUROSEMIDE 40 MG TAB PO SCH (18:00)
--- NOTE | 2017-11-03 18:41 | Discharge Summary ---
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 He developed a reaction to Zosyn. He was started on Levaquin. He is tolerating Levaquin pretty well. [facility]. The white blood count was elevated at 20,000. He is down to 13,400 and now afebrile, tolerating the IV antibiotic and the ventilator support. Subsequently going back to the longterm tomorrow. PHYSICAL EXAM VITAL SIGNS: Blood pressure 97/69, temperature 98.6, heart rate 96 per minute, respiratory rate 24 per minute. Oxygen saturation 100%. HEART: Showed regular rhythm. Normal S1, S2 sounds. LUNGS: Clear bilaterally. ABDOMEN: Soft. EXTREMITIES: Show no evidence of cyanosis, edema or trauma except for atrophy on both lower extremities. LABORATORY DATA: BMP: Sodium 136, potassium 3.9, chloride 101, CO2 of 28, BUN 16, creatinine 0.45, glucose 127. CBC: White blood count 13,400, hemoglobin 8.6, hematocrit 27.9, platelet count of 175,000. PT 16.0, PTT 49.5. INR 1.39. AST 17, ALT 16. Total bilirubin 0.5. Alkaline phosphatase 151. FINAL IMPRESSIONS 1. Acute on chronic respiratory failure. 2. Aspiration pneumonia. 3. End-stage cardiomyopathy with an ejection fraction of less than 10%. 4. Chronic systolic congestive heart failure. 5. Paroxysmal atrial fibrillation. 6. Anxiety disorder. 7. History of hypotension. 8. Restless leg syndrome. PLAN OF TREATMENT: Continue with albuterol and Atrovent q.6h. Continue with ventilator support. Levaquin 500 mg IV daily for 10 days, sertraline 50 mg daily, midodrine 5 mg 3 times a day for hypotension, Seroquel 12.5 mg q.12 hours, Ambien 5 mg at nighttime, lorazepam 1 mg IV q.6 hours, going to discontinue. Continue Pepcid 20 mg daily, Aldactone 25 mg twice a day, Zofran 4 mg q.6 hours as needed, Risperdal 0.25 mg q.6 hours as needed for agitation, Lovenox 40 mg subcutaneously twice a day until INR is 2.0 or more. Continue Coumadin 4 mg daily. Continue meropenem 1 gram IV q.8 hours. Continue gabapentin 100 mg 3 times a day, zinc oxide 1 g daily, Tylenol 650 mg q.6 hours as needed. Lorazepam 0.25 mg q.8 hours as needed for anxiety. Balsam luanne castor oil to the open sores stage I sacral decubitus twice a day, glucagon 1 mg subcutaneously q.8 hours for hypoglycemia, albuterol and Atrovent q.6 hours. Continue monitoring blood sugar q.6 hours. Questran 4 grams twice a day for chronic diarrhea, Benadryl 25 mg q.6 hours as needed, furosemide 40 mg by the PEG tube q.12 hours. Tentative discharge is for tomorrow. Job#: [id number] PAULA
[2017-11-03] MEDS ORDERED: FUROSEMIDE INJ 10 MG/ML 4 ML VIAL IV SCH (21:00)
== END 2017-11-03 21:30 | DRG 870 ==
LOC: ER 10:44 → ERHOLD 12:29 → ICU 13:44
PROVIDERS: ADMIT Internal Medicine; ATTEND Internal Medicine
PROC: 5A1955Z Respiratory Ventilation, Greater than 96 Consecutive Hours (ICD-10-PCS; 2017-10-20)
PROC: 02HV33Z Insertion of Infusion Device into Superior Vena Cava, Percutaneous Approach (ICD-10-PCS; 2017-10-20)
PROC: 30233K1 Transfusion of Nonautologous Frozen Plasma into Peripheral Vein, Percutaneous Approach (ICD-10-PCS; 2017-10-26)
PROC: 0D20XUZ Change Feeding Device in Upper Intestinal Tract, External Approach (ICD-10-PCS; principal; 2017-10-27 10:15)
PROC: 02HV33Z Insertion of Infusion Device into Superior Vena Cava, Percutaneous Approach (ICD-10-PCS; 2017-11-01)
DX: A41.52 Sepsis due to Pseudomonas (principal); J96.22 Acute and chronic respiratory failure with hypercapnia; I50.23 Acute on chronic systolic (congestive) heart failure; J69.0 Pneumonitis due to inhalation of food and vomit; G82.50 Quadriplegia, unspecified; Z99.11 Dependence on respirator [ventilator] status; I42.6 Alcoholic cardiomyopathy; K94.23 Gastrostomy malfunction; Z68.1 Body mass index [BMI] 19.9 or less, adult; R65.20 Severe sepsis without septic shock; E87.5 Hyperkalemia; I11.0 Hypertensive heart disease with heart failure; I48.0 Paroxysmal atrial fibrillation; Z79.01 Long term (current) use of anticoagulants; Z74.01 Bed confinement status; R53.81 Other malaise; R53.1 Weakness; E03.9 Hypothyroidism, unspecified; Z95.810 Presence of automatic (implantable) cardiac defibrillator; Z87.440 Personal history of urinary (tract) infections; K20.9 Esophagitis, unspecified; K44.9 Diaphragmatic hernia without obstruction or gangrene; K29.70 Gastritis, unspecified, without bleeding; D63.8 Anemia in other chronic diseases classified elsewhere; K63.89 Other specified diseases of intestine; L89.152 Pressure ulcer of sacral region, stage 2; Z16.35 Resistance to multiple antimicrobial drugs; K52.9 Noninfective gastroenteritis and colitis, unspecified; R63.6 Underweight; J44.9 Chronic obstructive pulmonary disease, unspecified; R11.10 Vomiting, unspecified; L27.0 Generalized skin eruption due to drugs and medicaments taken internally; T36.0X5A Adverse effect of penicillins, initial encounter; Y92.230 Patient room in hospital as the place of occurrence of the external cause; F41.9 Anxiety disorder, unspecified; G25.81 Restless legs syndrome
CPT/HCPCS: 36415; 36430; 36569; 36600; 43246; 71045; 74018; 74176; 76604; 80048; 80053; 80202; 82150; 82550; 82553; 82805; 82948; 83605; 83690; 83735; 83880; 84484; 85025; 85610; 85730; 86850; 86900; 87040; 87070; 87086; 87186; 87205; 87493; 92950; 93005; 94002; 94003; 94640; 96361; 96366; 96372; 99285; J0456; J0692; J1200; J1650; J1940; J1956; J2060; J2185; J2250; J2405; J2543; J2930; J3370; J3430; J7030; J7042; J7050; P9017

== ENCOUNTER 2017-11-17 03:05 | Emergency (ER) | payer MEDICARE ==
[~2017-11-17] VITALS: Ht 167.6 cm; Wt 55.8 kg
[~2017-11-17 03:05] MED LIST: ACETAMINOPHEN650 MG PEG; ALPRAZOLAM0.25 MG PEG; AMIODARONE HCL200 MG PEG; BUDESONIDE0.5 MG/2 M NEB; CARVEDILOL3.125 MG PEG; CHOLESTYRAMINE P4 GM PEG; COMBIVENT RESPIM4 GM IH; COUMADIN3 MG PEG; DEXTROSE 50%-WA50 ML IV; FAMOTIDINE20 MG PEG; GABAPENTIN100 MG PEG; GLUCAGEN1 M1 IM; HUMALOG100 UNIT/1 SC; LEVEMIR100 UNIT/1 SC; LEVOTHYROXINE50 MCG PO; LISINOPRIL2.5 MG PO; MIDODRINE HCL2.5 MG PO; NEOMYCIN-POLYMY10 ML; ONDANSETRON2 MG/1 ML IV; PNEUMOVAX25 MCG/0.5 IM; SERTRALINE HCL50 MG PO; SPIRONOLACTONE25 MG PEG; VENELEX OINTMEN60 GM; ZINC OXIDE56.7 GM TOP
--- NOTE | 2017-11-17 04:23 | Diagnostic Imaging Report ---
EXAMINATION: Head CT without contrast. HISTORY:Status post fall. COMPARISON:None. TECHNIQUE: Multidetector axial images were obtained from the foramen magnum to the vertex without contrast. The images were reconstructed using brain and bone algorithms. Thin section brain images were reformatted into coronal and sagittal planes. Dose modulation, iterative reconstruction, and/or weight based adjustment of the mA/kV was utilized to reduce the radiation dose to as low as reasonably achievable. Intravenous contrast: None IMAGE QUALITY: Acceptable. FINDINGS: Skull/scalp: No lytic or blastic. lesions. No surgical changes. Parenchyma: Nonspecific few, scattered supratentorial white matter patchy hypodensity are likely related to small vessel ischemic changes. Focal hypodensity in the medial and inferior aspect of left cerebellar hemisphere and superior and lateral aspect of left cerebellar hemisphere represents chronic encephalomalacia from prior vascular insult. No acute hemorrhage, mass or acute major vascular territorial infarct. Arteries: No density suggestive of thrombosis. Dural sinuses: No abnormal density suggestive of thrombosis. Ventricles: No hydrocephalus or displacement. Extra-axial spaces: No abnormal density. Brain volume: Generalized age-related cerebral volume loss. Craniocervical junction: No mass, Chiari malformation, or basilar invagination. Sella: No mass. Paranasal/mastoid sinuses: Mild mucosal thickening in right maxillary sinus. Chronic osseous deformity in the medial wall of right orbit may be related to prior trauma. IMPRESSION: 1. No acute intracranial abnormality. 2. Chronic encephalomalacia in left cerebellar hemisphere from prior vascular insult. Mild supratentorial white matter microvascular ischemic changes. 3. Generalized age-related cerebral volume loss. Signed by: Dr. Harper Estevez M.D. on 11/17/2017 4:19 AM
--- NOTE | 2017-11-17 04:28 | Diagnostic Imaging Report ---
History: Status post fall. Comparison studies: None Technique: Axial images were obtained through the cervical region.. Coronal and sagittal images reconstructed from the axial data. Dose modulation, iterative reconstruction, and/or weight based adjustment of the mA/kV was utilized to reduce the radiation dose to as low as reasonably achievable. Intravenous contrast: None Findings: Fractures: None. Soft tissue injuries: None. Atlantoaxial articulation: Intact. Alignment: Loss of normal cervical lordosis is either positional or due to muscle spasm. No scoliosis. Cervicomedullary junction: No abnormalities. The foramen magnum is patent. Soft tissues: No abnormalities. Vertebrae: No fractures, infection or neoplasm. Degenerative changes: C3-C4: Posterior disc osteophyte complex results in mild canal stenosis. Moderate bilateral foraminal stenosis due to facet and uncovertebral arthrosis. C4-C5: Posterior disc osteophyte complex results in mild to moderate canal stenosis. Moderate bilateral foraminal stenosis due to facet and uncovertebral arthrosis. C5-C6: Status post or disc osteophyte complex results in mild canal stenosis. Moderate right and mild left foraminal stenosis due to facet and uncovertebral arthrosis. C6-C7: Moderate left foraminal stenosis due to facet and uncovertebral arthrosis. Incidental finding: Airspace opacities in bilateral (left more than right) lung apices. Left lung apex pleural thickening. Tracheostomy tube noted in position. IMPRESSION: 1. No acute cervical spine fracture or dislocation. Loss of normal cervical lordosis is either positional or due to muscle spasm. 2. Ligament, spinal cord and or vascular abnormalities cannot be excluded on the basis of this examination. 3. Cervical spondylosis as detailed above. Signed by: Dr. Harper Estevez M.D. on 11/17/2017 4:25 AM
--- NOTE | 2017-11-17 04:41 | Diagnostic Imaging Report ---
EXAM: CHEST SINGLE (PORTABLE), AP 1 view INDICATION: Fall COMPARISON: AP view of the chest November 02, 2017 FINDINGS: LINES/TUBES: Stable position of tracheostomy tube and left approach single lead cardiac device. LUNGS: Stable interstitial thickening and more confluent opacity in the left lung. PLEURA: No effusions or pneumothorax. HEART AND MEDIASTINUM: Stable appearance. BONES AND SOFT TISSUES: No acute findings. IMPRESSION: No significant interval change. Signed by: Dr. Shaye Retana M.D. on 11/17/2017 4:38 AM
--- NOTE | 2017-11-17 04:42 | Diagnostic Imaging Report ---
EXAM: PELVIS AP 1-2 VIEWS INDICATION: Fall COMPARISON: None FINDINGS: BONES: No acute fractures. JOINTS: No malalignment. SOFT TISSUES: Right femoral line tip projects over the right sacroiliac joint. IMPRESSION: No evidence of a pelvic fracture. Signed by: Dr. Shaye Retana M.D. on 11/17/2017 4:39 AM
[2017-11-17 05:14] VITALS: BP 96/48
== END 2017-11-17 06:22 | disposition home or self-care (01) ==
LOC: ER 03:05
DX: Z04.3 Encounter for examination and observation following other accident (principal); W01.0XXA Fall on same level from slipping, tripping and stumbling without subsequent striking against object, initial encounter; Y92.128 Other place in nursing home as the place of occurrence of the external cause; Z93.0 Tracheostomy status
CPT/HCPCS: 70450; 71045; 72125; 72170; 94002; 99284

== ENCOUNTER 2017-11-22 05:17 | Inpatient (IN) | payer MEDICARE ==
[~2017-11-22] VITALS: Ht 160 cm; Wt 52.7 kg
[2017-11-22] VITALS (34 sets, daily range): BP systolic 77–114; BP diastolic 47–93
[2017-11-22 05:42] LABS: BASOPHILS # (AUTO) 0.1 (0.0-0.1); BASOPHILS % 0.5 % (0.0-1.0); EOSINOPHILS # (AUTO) 0.7 (0.0-0.4); EOSINOPHILS % 3.9 % (0.0-6.0); HEMATOCRIT 31.4 % (38.2-49.6); HEMOGLOBIN 10.4 g/dL (14.0-18.0); LYMPHOCYTES # (AUTO) 2.6 (1.0-3.2); LYMPHOCYTES % 15.5 % (18.0-39.1); MEAN CORPUSCULAR HEMOGLOBIN 30.1 pg (28-32); MEAN CORPUSCULAR HGB CONC 33.1 g/dL (31-35); MEAN CORPUSCULAR VOLUME 90.8 fL (81-99); MONOCYTES # (AUTO) 1.3 (0.2-0.8); MONOCYTES % 7.9 % (4.4-11.3); NEUTROPHILS # (AUTO) 11.7 (2.1-6.9); NEUTROPHILS % 70.3 % (38.7-80.0); PLATELET COUNT 302 x10e3/uL (140-360); RED BLOOD COUNT 3.46 x10e6/uL (4.3-5.7); RED CELL DISTRIBUTION WIDTH 14.6 % (11.7-14.4)
[2017-11-22 05:47] LABS: INR 1.64; PROTHROMBIN TIME 20.8 seconds (11.9-14.5)
[2017-11-22 05:48] LABS: PARTIAL THROMBOPLASTIN TIME 53.6 seconds (23.8-35.5)
[2017-11-22 05:54] LABS: ALANINE AMINOTRANSFERASE 22 IU/L (0-55); ALBUMIN/GLOBULIN RATIO 0.6 (0.8-2.0); ALKALINE PHOSPHATASE 162 IU/L (40-150); ANION GAP 15.5 mmol/L (8-16); BLOOD UREA NITROGEN 14 mg/dL (7-26); BUN/CREATININE RATIO 23 (6-25); CALCIUM 9.5 mg/dL (8.4-10.2); CARBON DIOXIDE 33 mmol/L (22-29); CHLORIDE 85 mmol/L (98-107); CREATININE, SERUM 0.61 mg/dL (0.72-1.25); EST GLOMERULAR FILTRATION RATE > 60 ML/MIN (60-); GLUCOSE 182 mg/dL (74-118); POTASSIUM 4.5 mmol/L (3.5-5.1); SODIUM 129 mmol/L (136-145)
[2017-11-22] MEDS ORDERED: DEXTROSE 50% SYRINGE 50 ML IV PRN (06:45)
[2017-11-22] MEDS ORDERED: MEROPENEM 1GRAM 1 GM in SODIUM CHLORIDE 0.9% 100 ML 100 ML IV SCH (06:45)
[2017-11-22] MEDS ORDERED: SODIUM CHLORIDE 0.9% 1000ML 1,000 ML IV ONE (06:45)
--- NOTE | 2017-11-22 06:45 | Diagnostic Imaging Report ---
EXAMINATION: CHEST SINGLE (PORTABLE) INDICATION: Shortness of breath COMPARISON: 11/17/2017 FINDINGS: TUBES and LINES: Left-sided pacemaker/ICD LUNGS: Lungs are not well inflated. There are bibasilar atelectasis. Persistent interlobular septi thickening left greater than right PLEURA: Small bilateral pleural effusions HEART AND MEDIASTINUM: The cardiomediastinal silhouette is unremarkable. There are atherosclerotic calcifications within the aorta. BONES AND SOFT TISSUES: No acute osseous lesion. Soft tissues are unremarkable. UPPER ABDOMEN: No free air under the diaphragm. IMPRESSION: 1. Findings are stable with evidence of edema and confluent left lung opacity suspicious for infection Signed by: Dr. Dieudonne Donahue M.D. on 11/22/2017 6:41 AM
[2017-11-22] MEDS: VANCOMYCIN 1GM/NS 250 ML 250 ML IV SCH ×2 (07:11→20:06)
[2017-11-22] MEDS: INSULIN REGULAR, HUMAN 100 UNIT/1 ML 3ML VIAL SQ SCH ×3 (07:24→18:19)
[2017-11-22 07:44] LABS: BILIRUBIN,URINE NEGATIVE (NEGATIVE); CLARITY,URINE CLEAR (CLEAR); COLOR,URINE YELLOW (YELLOW); KETONES,URINE NEGATIVE (NEGATIVE); LEUKOCYTE ESTERASE ,URINE 1+ (NEGATIVE); NITRITE,URINE NEGATIVE (NEGATIVE); PROTEIN,URINE DIPSTICK 1+ (NEGATIVE); URINE UROBILINOGEN 0.2 mg/dL (0.2 - 1)
[2017-11-22 07:59] LABS: WBC,URINE (MAN) >50 /HPF (0-5)
[2017-11-22 08:00] LABS: BACTERIA,URINE RARE /HPF; EPITHELIAL CELLS,URINE RARE /LPF
[2017-11-22] MEDS ORDERED: FAMOTIDINE 20 MG/2 ML VIAL IV ONE (10:10)
[2017-11-22] MEDS: MEROPENEM 1 GM VIAL IV SCH ×3 (10:10→21:58)
[2017-11-22] MEDS: FAMOTIDINE 20 MG/2 ML VIAL IV SCH (10:16)
[2017-11-22] MEDS ORDERED: QUETIAPINE FUMARATE 25 MG TAB PO SCH (10:30)
--- NOTE | 2017-11-22 13:43 | Consultation ---
DATE OF CONSULTATION: November 22, 2017 PULMONARY CONSULTATION REASON FOR CONSULTATION: Ventilator management. HPI: Mr. Cortez is a 67-year-old male who was transferred from [facility] because he was oozing from his femoral line. The patient has severe cardiomyopathy with EF of 10%, and he is vent dependent. He was recently here and was treated for pneumonia. His sputum culture grew out Staph aureus, which was treated. He was sent back from the correction because his femoral central line was oozing and bleeding. Patient is denying any complaints of chest pain or shortness of breath. He is vent dependent. REVIEW OF SYSTEMS GENERAL: Denies any fever or chills. HEAD: Denies any head trauma. ENT: Denies any earache. CVS: Denies any chest pain. RESPIRATORY: Denies any shortness of breath. Patient is vent dependent. OTHER: The rest of the review of systems are negative except as in HPI. PAST MEDICAL HISTORY: Cardiomyopathy, tracheostomy, PEG tube, bedbound, ventilator dependence. FAMILY AND SOCIAL HISTORY: He is at [facility]. He has no history of smoking. is involved in his care. PHYSICAL EXAMINATION VITAL SIGNS: Temperature 98.1, pulse of 96, blood pressure 106/77, respiratory rate 18. O2 sat is 98%. He is on vent support. HEENT: Head is atraumatic, normocephalic. NECK: Supple. He has a tracheostomy. CHEST: Clear to auscultation bilaterally. HEART: S1, S2 audible. ABDOMEN: Soft. EXTREMITIES: No pedal edema. RIGHT GROIN: Patient's femoral line is examined. It is oozing. NEUROLOGIC: He is awake, alert, following commands. No focal neurologic deficit. LABS: White count 16,000, hemoglobin 10.4, platelets 302. Chemistry: Sodium 129, potassium 4.5, chloride 85, BUN 14, creatinine 0.6. ASSESSMENT AND PLAN: Mr. Cortez is a 67-year-old male. He is ventilator dependent. He has severe cardiomyopathy with ejection fraction of 10%. CURRENT PROBLEMS 1. Malfunction of the central line. 2. Severe cardiomyopathy with ejection fraction of 10%. 3. Tracheostomy status. 4. Gastrostomy status. 5. Bedbound. 6. Debility and weakness. PLAN 1. Will remove the central line. Get a PICC line on the patient because he will need IV access. 2. Continue the patient on IV vancomycin and meropenem. Chest x-ray is showing bilateral infiltrate; but compared to previous x-ray, there is not much change. Will not treat for pneumonia at this point. 3. He is vent dependent. Vent settings reviewed. He is on FiO2 of 40% and rate of 14, which will be continued. 4. Will start the patient on DVT prophylaxis and GI prophylaxis. 5. Resume PEG feeding. Job#: [id number]
[2017-11-22] MEDS: ENOXAPARIN 30 MG/0.3 ML SYR SC SCH (17:42)
--- NOTE | 2017-11-22 19:54 | Consultation ---
DATE OF CONSULTATION: REASON FOR CONSULTATION: Leukocytosis, concern about infection. HISTORY OF PRESENT ILLNESS: This patient is well known to me. He is a [id number] male. He was recently in the hospital. [facility] because there is some blood coming from the femoral line. The patient has history of severe cardiomyopathy. The patient is vent dependent, cardiomyopathy, tracheostomy. PEG tube placement, bedbound and his at the bedside. The is telling me there was no fever, no chills, no nausea, no vomiting, no diarrhea, but he does have some oozing of blood so he was transferred here. The patient is currently in ICU, comfortable on a vent. REVIEW OF SYSTEMS: According to the , there is really nothing new at the present time. PHYSICAL EXAMINATION: GENERAL: He is currently alert, oriented and does not seem to be in acute distress. VITALS: Stable. Currently afebrile. HEENT: Not icteric. NECK: Supple. CHEST: Clear. HEART: S1 and S2, no murmur. ABDOMEN: Soft. Bowel sounds present. IMPRESSION: Leukocytosis on admission. RECOMMENDATIONS: I agree with blood cultures. Clinically, he seems to be stable. There is no fever and no chills. I would hold off continuing PICC line in a patient who has multiple admissions for multiple infections. He will receive antibiotic. We are going to observe the patient clinically. Try to get peripheral IV. The patient's is concerned about feeding, which we are going to start. On review of systems, there is nothing new according to her. Laboratory data reviewed. Medications reviewed. I would suggest to recheck CBC. Recheck chem panel. Will follow with you. Job#: [id number]
[2017-11-22] MEDS: QUETIAPINE FUMARATE 25 MG TAB PO SCH (20:07)
--- NOTE | 2017-11-22 20:19 | History and Physical ---
HISTORY OF PRESENT ILLNESS: [id number] male who had a past medical history positive for chronic respiratory failure, chronic ventilator dependent, history of end-stage congestive heart failure with an ejection fraction of 10%. [facility] in a chronic [facility] unit. Unfortunately, the family wants to continue the treatment even the fact that he had a terminal situation. Patient was transferred to the emergency room here because of possible bleeding through the central line, which was not seen at the emergency room, but his white blood count was elevated, therefore we are doing the workup for sepsis. REVIEW OF SYSTEMS: The patient of course is on the ventilator, cannot give any information. PAST MEDICAL HISTORY: Positive for end-stage congestive heart failure with an ejection fraction that is only 10%. Also another diagnosis is chronic ventilator dependency, another diagnosis is severe protein-calorie malnutrition, another diagnosis is diabetes mellitus type 2. PHYSICAL EXAMINATION: VITAL SIGNS: Blood pressure 95/60, temperature 98.1, heart rate 80 per minute, respiratory rate is 27 per minute. Oxygen saturation 99%. BLOOD WORK: We have BMP with a sodium which is lower 129, potassium 4.5, chloride 85, CO2 33, BUN 14, creatinine 0.61, glucose 182. On the CBC, white blood count 16,500; hemoglobin 10.4; hematocrit 31.4; platelet count 302,000. PT 20.8, INR 1.64, PTT is 53.6. AST 31, ALT 22. Total bilirubin 0.3, alkaline phosphatase 162. Chest x-ray showed no evidence of any pneumonia. FINAL IMPRESSION: 1. Chronic respiratory failure. 2. Possible sepsis. 3. Diabetes mellitus type 2. 4. Chronic systolic congestive heart failure with an ejection fraction of 10%. 5. Severe protein-calorie malnutrition. 6. Paroxysmal atrial fibrillation. PLAN OF TREATMENT: Continue vancomycin and meropenem. Continue monitoring blood sugar every 6 hours. Continue Pepcid 20 mg daily, Seroquel 12.5 mg twice a day. Continue Lovenox 30 mg subcutaneously daily. We are going to wait for the blood culture and urine culture report. Job#: [id number]
[2017-11-23] VITALS (43 sets, daily range): BP systolic 78–114; BP diastolic 45–82
[2017-11-23 04:41] LABS: BASOPHILS # (AUTO) 0.1 (0.0-0.1); BASOPHILS % 0.3 % (0.0-1.0); EOSINOPHILS # (AUTO) 0.4 (0.0-0.4); EOSINOPHILS % 2.1 % (0.0-6.0); HEMATOCRIT 28.3 % (38.2-49.6); HEMOGLOBIN 9.2 g/dL (14.0-18.0); LYMPHOCYTES # (AUTO) 1.9 (1.0-3.2); MEAN CORPUSCULAR HEMOGLOBIN 30.3 pg (28-32); MEAN CORPUSCULAR HGB CONC 32.5 g/dL (31-35); MEAN CORPUSCULAR VOLUME 93.1 fL (81-99); MONOCYTES # (AUTO) 1.1 (0.2-0.8); MONOCYTES % 6.6 % (4.4-11.3); NEUTROPHILS # (AUTO) 13.5 (2.1-6.9); NEUTROPHILS % 78.9 % (38.7-80.0); PLATELET COUNT 295 x10e3/uL (140-360); RED BLOOD COUNT 3.04 x10e6/uL (4.3-5.7); RED CELL DISTRIBUTION WIDTH 14.8 % (11.7-14.4)
[2017-11-23 05:03] LABS: ALANINE AMINOTRANSFERASE 21 IU/L (0-55); ALBUMIN 2.6 g/dL (3.5-5.0); ALBUMIN/GLOBULIN RATIO 0.6 (0.8-2.0); ALKALINE PHOSPHATASE 156 IU/L (40-150); BLOOD UREA NITROGEN 10 mg/dL (7-26); BUN/CREATININE RATIO 18 (6-25); CALCIUM 9.1 mg/dL (8.4-10.2); CARBON DIOXIDE 29 mmol/L (22-29); CHLORIDE 92 mmol/L (98-107); CREATININE, SERUM 0.56 mg/dL (0.72-1.25); EST GLOMERULAR FILTRATION RATE > 60 ML/MIN (60-); GLUCOSE 131 mg/dL (74-118); SODIUM 132 mmol/L (136-145)
[2017-11-23] MEDS: INSULIN REGULAR, HUMAN 100 UNIT/1 ML 3ML VIAL SQ SCH ×4 (05:36→17:04)
[2017-11-23] MEDS: MEROPENEM 1 GM VIAL IV SCH (05:38)
[2017-11-23] MEDS: QUETIAPINE FUMARATE 25 MG TAB PO SCH ×2 (08:51→21:09)
[2017-11-23] MEDS: FAMOTIDINE 20 MG/2 ML VIAL IV SCH (08:51)
[2017-11-23] MEDS: VANCOMYCIN 1GM/NS 250 ML 250 ML IV SCH (08:51)
[2017-11-23] MEDS: ONDANSETRON HCL INJ 2 MG/ML VIAL IV PRN (12:27)
[2017-11-23] MEDS: LORAZEPAM INJ 2 MG/ML VIAL IV PRN (13:00)
[2017-11-23] MEDS ORDERED: ATROPINE SULFATE 0.1 MG/ML 10ML SYR ONE (14:07)
[2017-11-23] MEDS: ENOXAPARIN 30 MG/0.3 ML SYR SC SCH (16:56)
--- NOTE | 2017-11-23 22:12 | Progress Note ---
DATE: INTERNAL MEDICINE PROGRESS NOTE The patient is chronically on the ventilator. No fever so far. Antibiotics have been discontinued by Dr. Gracia. Blood culture and urine culture so far negative. PHYSICAL EXAMINATION HEART: Shows regular rhythm. Normal S1 and S2 sounds. LUNGS: Show decreased sounds bilaterally. ABDOMEN: Soft. PEG tube in place. Has a tracheostomy in place. EXTREMITIES: Show atrophy in upper and lower extremities. On the BMP, sodium 132, potassium 4, chloride 92, CO2 29, BUN 10, creatinine 0.56, glucose 131. On the CBC, white blood count 17,000, hemoglobin 9.2, hematocrit 28.3, and platelet count 295,000. PT 20.8, PTT 53.6 and INR 1.64. AST 30, ALT 21, total bilirubin 0.6, and alkaline phosphatase 156. FINAL IMPRESSION 1. Leukocytosis with negative blood cultures. 2. History of chronic ventilator dependency. 3. Severe end-stage cardiomyopathy with ejection fraction less than 10%. 4. Anemia of chronic disease. 5. Hyponatremia. 6. History of paroxysmal atrial fibrillation. 7. Diabetes mellitus, type 2. PLAN OF TREATMENT: Continue ventilator support. Continue Lovenox 30 mg 1 tablet daily. Pepcid 20 mg daily. Seroquel 12.5 mg twice a day. Monitor blood sugar q.6 h. He is on anticoagulation with Coumadin. We are going to find out the dose, but as I said, the patient is off the antibiotics as per Dr. Gracia's recommendations based on the fact that the blood cultures are negative. He can [facility] a [facility] where he lives. He has a chronic ventilator. He has been unweanable so far. Job#: [id number] FABIAN
[2017-11-24] VITALS (29 sets, daily range): BP systolic 73–120; BP diastolic 24–104
[2017-11-24] MEDS: INSULIN REGULAR, HUMAN 100 UNIT/1 ML 3ML VIAL SQ SCH ×3 (00:46→12:00)
[2017-11-24] MEDS: ONDANSETRON HCL INJ 2 MG/ML VIAL IV PRN ×2 (08:45→12:58)
[2017-11-24] MEDS: FAMOTIDINE 20 MG/2 ML VIAL IV SCH (09:01)
[2017-11-24] MEDS: QUETIAPINE FUMARATE 25 MG TAB PO SCH (09:01)
[2017-11-24] MEDS: LORAZEPAM INJ 2 MG/ML VIAL IV PRN (12:58)
[2017-11-24] MEDS: ENOXAPARIN 30 MG/0.3 ML SYR SC SCH (17:12)
[2017-11-24] MEDS ORDERED: BUDESONIDE 0.5MG/2 ML NEB NEB SCH (17:15)
[2017-11-24] MEDS ORDERED: DEXTROSE 50% SYRINGE 50 ML IV PRN (17:15)
[2017-11-24] MEDS ORDERED: PNEUMOCOCCAL VACCINE POLYVALENT 23 MCG/0.5 ML VIAL IM SCH (17:15)
[2017-11-24] MEDS ORDERED: ACETAMINOPHEN 650 MG SUPP PR PRN (17:15)
[2017-11-24] MEDS ORDERED: GLUCAGON FOR INJ 1 MG VIAL IM PRN (17:15)
[2017-11-24] MEDS ORDERED: IPRATROPIUM/ALBUTEROL SULFATE 4 GM INH INH SCH (18:00)
[2017-11-24] MEDS ORDERED: ALPRAZOLAM 0.25 MG TAB PEG SCH (18:00)
--- NOTE | 2017-11-24 18:10 | Discharge Summary ---
HISTORY OF PRESENT ILLNESS: A 67-year-old male with past medical history positive for end-stage cardiomyopathy. He is chronically on the ventilator machine. Patient came here because of apparently bleeding through the central line which we never saw when he came to the hospital, but since he had elevated white blood count, the patient was admitted to the hospital and started on IV antibiotic. Blood cultures are negative. The urine culture showed some yeast. Patient was seen by Dr. Gracia who discontinued the antibiotics. [facility]. He is chronically on the ventilator. He has very poor prognosis with low ejection fraction of 10%. PHYSICAL EXAM: VITAL SIGNS: Blood pressure 106/66, temperature 98.6, heart rate 95 per minute. Respiratory rate 22 per minute, oxygen saturation 99%. HEART: Regular rhythm. No murmur. No extra sounds. LUNGS: Clear bilaterally. ABDOMEN: Soft. EXTREMITIES: Show no evidence of cyanosis, edema or trauma. LABORATORY DATA: On the blood we have BMP sodium 132, potassium 4.0, chloride 92, CO2 29, BUN 10, creatinine 0.56. Glucose 131. On the CBC white blood count 17,000, hemoglobin 9.2, hematocrit 28.3, platelet count 295,000.. PT 20.8. INR 1.64. PTT 53.6. AST 30. ALT 21. Total bilirubin 0.6, alkaline phosphatase 156. FINAL IMPRESSION 1. Chronic respiratory failure. 2. Hyponatremia. 3. End-stage renal disease. 4. End-stage cardiomyopathy with an ejection fraction of 10%. 5. Chronic systolic congestive heart failure. 6. Diabetes mellitus type 2. PLAN OF TREATMENT: The patient is going to be transferred on Pepcid 20 mg daily, Seroquel 12.5 mg twice a day. Monitor blood sugar q.6 hours. Continue PEG tube feeding. Continue lorazepam 2 mg q. 4 hours as needed and continue with the rest of the medications which include Tylenol 350 mg q.6 hours as needed for headache. Xanax 0.25 mg q.6 hours as needed for anxiety. Amiodarone 400 mg daily. Budesonide twice a day. Carvedilol 6.25 mg twice a day. Budesonide nebulization twice a day. Continue Pepcid 20 mg daily. Gabapentin 100 mg 3 times a day. Continue albuterol and Atrovent q.6 hours around the clock. Continue levothyroxine 5 mcg daily. Midodrine 5 mg 3 times a day. Neomycin Polymyxin to the optic area as prescribed. Zoloft 150 mg daily. Aldactone 25 mg twice a day. Coumadin 2.5 mg daily. Zinc oxide topical daily. He is on Zofran 4 mg IV q.6 hours as needed. MILTON ROPER MD Job#: [id number] GH
[2017-11-24] MEDS ORDERED: NEOMYCIN/POLYMYX/HYDROC (OTIC) 10 ML BTL EACH EAR SCH (21:00)
[2017-11-24] MEDS ORDERED: GABAPENTIN 100 MG CAP PEG SCH (21:00)
[2017-11-24] MEDS ORDERED: MIDODRINE 2.5 MG TAB PO SCH (21:00)
[2017-11-25] MEDS ORDERED: SPIRONOLACTONE 25 MG TAB PEG SCH (09:00)
[2017-11-25] MEDS ORDERED: CARVEDILOL 3.125 MG TAB PEG SCH (09:00)
[2017-11-25] MEDS ORDERED: SERTRALINE HCL 50 MG TAB PO SCH (09:00)
[2017-11-25] MEDS ORDERED: ZINC OXIDE 30 GM TUBE TOP SCH (09:00)
[2017-11-25] MEDS ORDERED: LEVOTHYROXINE SODIUM 50 MCG TAB PO SCH (09:00)
[2017-11-25] MEDS ORDERED: FAMOTIDINE 20 MG TAB PEG SCH (09:00)
[2017-11-25] MEDS ORDERED: AMIODARONE HCL 200 MG TAB PEG SCH (09:00)
[2017-11-25] MEDS ORDERED: BALSAM PERU/CASTOR OIL 60 GM OINT...G. TP SCH (09:00)
[2017-11-25] MEDS ORDERED: WARFARIN SOD 3 MG TAB PEG SCH (17:00)
== END 2017-11-24 17:05 | DRG 814 ==
LOC: ER 05:17 → ERHOLD 06:49 → ICU 09:30
PROVIDERS: ADMIT Internal Medicine; ATTEND Internal Medicine
PROC: 5A1945Z Respiratory Ventilation, 24-96 Consecutive Hours (ICD-10-PCS; principal; 2017-11-22)
DX: D72.829 Elevated white blood cell count, unspecified (principal); N18.6 End stage renal disease; E43 Unspecified severe protein-calorie malnutrition; J96.11 Chronic respiratory failure with hypoxia; Z99.11 Dependence on respirator [ventilator] status; I50.22 Chronic systolic (congestive) heart failure; E87.1 Hypo-osmolality and hyponatremia; T82.838A Hemorrhage due to vascular prosthetic devices, implants and grafts, initial encounter; Z93.1 Gastrostomy status; E11.22 Type 2 diabetes mellitus with diabetic chronic kidney disease; E11.65 Type 2 diabetes mellitus with hyperglycemia; Z79.4 Long term (current) use of insulin; I50.84 End stage heart failure; Z93.0 Tracheostomy status; Z74.01 Bed confinement status; Z95.810 Presence of automatic (implantable) cardiac defibrillator; Z66 Do not resuscitate; R53.81 Other malaise; R53.1 Weakness; I48.0 Paroxysmal atrial fibrillation; Z79.01 Long term (current) use of anticoagulants; Y84.8 Other medical procedures as the cause of abnormal reaction of the patient, or of later complication, without mention of misadventure at the time of the procedure; Y92.129 Unspecified place in nursing home as the place of occurrence of the external cause
CPT/HCPCS: 36415; 71045; 80053; 81001; 82948; 85025; 85610; 85730; 87040; 87070; 87086; 87186; 87205; 94002; 94003; 96372; 97139; 99284; J1650; J2060; J2185; J2405; J3370; J7030

== ENCOUNTER 2017-12-14 20:49 | Emergency (ER) | payer MEDICARE ==
[~2017-12-14] VITALS: Ht 160 cm; Wt 52.6 kg
== END 2017-12-14 22:20 | disposition home or self-care (01) ==
LOC: ER 20:49
DX: R06.09 Other forms of dyspnea (principal); J44.9 Chronic obstructive pulmonary disease, unspecified; M62.59 Muscle wasting and atrophy, not elsewhere classified, multiple sites; R27.8 Other lack of coordination; I11.9 Hypertensive heart disease without heart failure; Z66 Do not resuscitate; Z93.0 Tracheostomy status
CPT/HCPCS: 94002; 99284